=== PATIENT | male | born 1950 | race Caucasian/White ===

== ENCOUNTER 2017-09-05 16:49 | Inpatient (IN) | payer OTHER ==
[~2017-09-05] VITALS: Ht 185.4 cm; Wt 116.2 kg
[~2017-09-05 16:49] MED LIST: ALBIPROI; ALBU90OI INH; ALLO100; ALLO100 PO; ALUMINUM HYDROXIDE; AMPHOJEL PO; ASPI325; ASPI325EC; Aspir 8181 MG PO; BUME1; BUME1 PO; BUME2; BUME2 PO; CARV25 PO; CARV6.25; CARV6.25 PO; CEPH500 PO; CIPR500 PO; DIGO.125; DIGO.25; DILT180ER; DOC250; DOC250 PO; DOCSEN PO; ESCI10; ESCI10 PO; FLUSAL2505; FOSI10; FURO40; FURO40 PO; GABA100 PO; GEMF600 PO; GLIP10; GLIP10 PO; GLIP5; GLIP5ER; HYDACE10; HYDACE10 PO; HYDACE10B PO; HYDACE5; HYDCHL25; INSULANPEN SC; LEVEMIR FL100 UNIT/1 SC; LEVO750 PO; LISI5 PO; LORTAB 10-3251 EACH PO; METF500; METF500 PO; METO100ER; METO2.5; METO2.5 PO; METO50ER PO; MIDO5 PO; MIRALAX17 GM PO; MORP30ER PO; MULVITB; MULVITB PO; Metformin HCl1000 MG PO; NEPHRO-VITE; NITR.4SL; Naprosyn500 MG PO; Norco 10-325 T1 EACH PO; Novofine 321 EACH; Novolog Fl100 UNIT/1 INJ; OXYACE5T PO; OXYC20ER; PIOG15; PIOG45 PO; PIRO10; POLY17UD; POTA10T; POTA10T PO; POTA20PAC; POTCHL20ER; POTCHL20ER PO; PRAV20 PO; Percocet 5-3251 EACH PO; RANI150; RANI150 PO; RXSULTRIDS; Rena-Vite Tabl0.8 MG PO; SENN187; SENN187 PO; SILSUL1TC TOP; SPIR25 PO; SULTRIDS PO; TAMS.4ER PO; VERA80; [UNRECOGNIZED DRUG - REMARK] PO
[2017-09-05] MEDS ORDERED: Midodrine HCl10 MG PO (17:21)
[2017-09-05 17:24] LABS: BASOPHILS PERCENT AUTO 1 % (0-2); EOSINOPHILS ABSOLUTE AUTO 0.19 K/mm3 (0.00-0.68); EOSINOPHILS PERCENT AUTO 2 % (0-6); Hematocrit 41.9 % (37.0-53.0); Hemoglobin 14.1 g/dL (13.5-17.5); IMMATURE GRAN ABSOLUTE AUTO 0.05 K/mm3 (0.00-0.10); IMMATURE GRAN PERCENT AUTO 0 % (0-1); LYMPHOCYTES ABSOLUTE AUTO 2.53 K/mm3 (0.84-5.20); LYMPHOCYTES PERCENT AUTO 21 % (21-46); MONOCYTES ABSOLUTE AUTO 0.64 K/mm3 (0.16-1.47); MONOCYTES PERCENT AUTO 5 % (4-13); Mean Corpuscular HGB Conc 33.7 g/dL (31.5-36.5); Mean Corpuscular Volume 95 fL (80-100); NEUTROPHILS ABSOLUTE AUTO 8.63 K/mm3 (1.96-9.15); NEUTROPHILS PERCENT AUTO 71 % (41-73); Platelet Count 315 K/mm3 (150-400); RDW Coefficient Variation 13.9 % (11.7-14.2); RDW Standard Deviation 48.4 fL (35.1-46.3); White Blood Cell Count 12.14 K/mm3 (4.00-11.30)
[2017-09-05 17:37] LABS: Prothrombin Time Results 10.4 Sec (9.7-11.5)
[2017-09-05 17:40] LABS: Albumin, Blood 3.7 g/dL (3.4-5.0); Albumin/Globulin Ratio 0.7 (0.8-1.8); Bun/Creatinine Ratio 21.7 (12.0-20.0); Calcium, Blood 9.6 mg/dL (8.5-10.1); Creatinine, Blood 1.52 mg/dL (0.60-1.20); Globulin, Blood 5.2 g/dL (2.2-4.0); Potassium, Blood 4.3 mmol/L (3.5-5.5); Total Protein, Blood 8.9 g/dL (6.4-8.2)
[2017-09-06 02:34] LABS: Source, Urine Clean Catch
[2017-09-06 02:43] LABS: Bilirubin, Urine Neg (Neg); Blood, Urine Neg (Neg); Glucose Qualitative, Urine Neg (Neg); Ketones, Urine Neg (Neg); Leukocyte Esterase, Urine Neg (Neg); Nitrite, Urine Neg (Neg); Protein, Urine Neg (Neg); Specific Gravity, Urine 1.015 (1.003-1.022); Urobilinogen, Urine NORM (Normal)
[2017-09-06 02:46] LABS: Appearance, Urine Clear (Clear); Color, Urine Yellow (P-Yellow)
[2017-09-06 04:15] LABS: BASOPHILS ABSOLUTE AUTO 0.08 K/mm3 (0.00-0.23); BASOPHILS PERCENT AUTO 1 % (0-2); EOSINOPHILS ABSOLUTE AUTO 0.23 K/mm3 (0.00-0.68); EOSINOPHILS PERCENT AUTO 2 % (0-6); Hematocrit 39.7 % (37.0-53.0); Hemoglobin 13.2 g/dL (13.5-17.5); IMMATURE GRAN ABSOLUTE AUTO 0.07 K/mm3 (0.00-0.10); IMMATURE GRAN PERCENT AUTO 1 % (0-1); LYMPHOCYTES ABSOLUTE AUTO 2.81 K/mm3 (0.84-5.20); LYMPHOCYTES PERCENT AUTO 23 % (21-46); MONOCYTES ABSOLUTE AUTO 0.82 K/mm3 (0.16-1.47); MONOCYTES PERCENT AUTO 7 % (4-13); Mean Corpuscular HGB Conc 33.2 g/dL (31.5-36.5); Mean Corpuscular Volume 96 fL (80-100); Mean Platelet Volume 10.1 fL (9.1-12.4); NEUTROPHILS ABSOLUTE AUTO 8.36 K/mm3 (1.96-9.15); NEUTROPHILS PERCENT AUTO 68 % (41-73); Platelet Count 272 K/mm3 (150-400); RDW Coefficient Variation 14.2 % (11.7-14.2); RDW Standard Deviation 49.3 fL (35.1-46.3); Red Blood Cell Count 4.12 M/mm3 (4.30-5.90); White Blood Cell Count 12.37 K/mm3 (4.00-11.30)
[2017-09-06 04:43] LABS: Albumin, Blood 3.3 g/dL (3.4-5.0); Albumin/Globulin Ratio 0.7 (0.8-1.8); Bilirubin, Total 0.8 mg/dL (0.1-1.0); Bun/Creatinine Ratio 24.5 (12.0-20.0); Calcium, Blood 9.3 mg/dL (8.5-10.1); Creatinine, Blood 1.39 mg/dL (0.60-1.20); Globulin, Blood 4.8 g/dL (2.2-4.0); Potassium, Blood 4.3 mmol/L (3.5-5.5); Total Protein, Blood 8.1 g/dL (6.4-8.2)
[2017-09-06] MEDS ORDERED: ELIQUIS5 MG PO (05:22)
[2017-09-07 04:11] LABS: BASOPHILS ABSOLUTE AUTO 0.08 K/mm3 (0.00-0.23); BASOPHILS PERCENT AUTO 1 % (0-2); EOSINOPHILS ABSOLUTE AUTO 0.22 K/mm3 (0.00-0.68); EOSINOPHILS PERCENT AUTO 2 % (0-6); Hematocrit 36.1 % (37.0-53.0); Hemoglobin 12.1 g/dL (13.5-17.5); IMMATURE GRAN ABSOLUTE AUTO 0.06 K/mm3 (0.00-0.10); IMMATURE GRAN PERCENT AUTO 1 % (0-1); LYMPHOCYTES ABSOLUTE AUTO 3.11 K/mm3 (0.84-5.20); LYMPHOCYTES PERCENT AUTO 32 % (21-46); MONOCYTES ABSOLUTE AUTO 0.71 K/mm3 (0.16-1.47); MONOCYTES PERCENT AUTO 7 % (4-13); Mean Corpuscular HGB Conc 33.5 g/dL (31.5-36.5); Mean Corpuscular Volume 96 fL (80-100); Mean Platelet Volume 10.2 fL (9.1-12.4); NEUTROPHILS ABSOLUTE AUTO 5.42 K/mm3 (1.96-9.15); NEUTROPHILS PERCENT AUTO 57 % (41-73); Platelet Count 251 K/mm3 (150-400); RDW Standard Deviation 48.4 fL (35.1-46.3); Red Blood Cell Count 3.78 M/mm3 (4.30-5.90)
[2017-09-07 04:26] LABS: Albumin, Blood 2.9 g/dL (3.4-5.0); Anion Gap 7 mmol/L (6-16); Blood Urea Nitrogen 49 mg/dL (8-24); Bun/Creatinine Ratio 31.8 (12.0-20.0); CO2, Blood 27 mmol/L (21-32); Calcium, Blood 8.5 mg/dL (8.5-10.1); Chloride, Blood 102 mmol/L (98-108); Creatinine, Blood 1.54 mg/dL (0.60-1.20); Glomerular Filtration Rate 48 (60-); Glucose, Blood 241 mg/dL (70-99); Phosphorus, Blood 4.5 mg/dL (2.5-4.9); Potassium, Blood 4.1 mmol/L (3.5-5.5); Sodium, Blood 136 mmol/L (136-145)
[2017-09-09 04:55] LABS: BASOPHILS ABSOLUTE AUTO 0.09 K/mm3 (0.00-0.23); BASOPHILS PERCENT AUTO 1 % (0-2); EOSINOPHILS ABSOLUTE AUTO 0.32 K/mm3 (0.00-0.68); EOSINOPHILS PERCENT AUTO 4 % (0-6); Hematocrit 39.2 % (37.0-53.0); IMMATURE GRAN ABSOLUTE AUTO 0.05 K/mm3 (0.00-0.10); IMMATURE GRAN PERCENT AUTO 1 % (0-1); LYMPHOCYTES ABSOLUTE AUTO 3.03 K/mm3 (0.84-5.20); LYMPHOCYTES PERCENT AUTO 36 % (21-46); MONOCYTES ABSOLUTE AUTO 0.77 K/mm3 (0.16-1.47); MONOCYTES PERCENT AUTO 9 % (4-13); Mean Corpuscular HGB 31.9 pg (26.0-34.0); Mean Corpuscular HGB Conc 33.2 g/dL (31.5-36.5); Mean Corpuscular Volume 96 fL (80-100); Mean Platelet Volume 10.3 fL (9.1-12.4); NEUTROPHILS ABSOLUTE AUTO 4.14 K/mm3 (1.96-9.15); NEUTROPHILS PERCENT AUTO 49 % (41-73); Platelet Count 257 K/mm3 (150-400); RDW Coefficient Variation 13.9 % (11.7-14.2); RDW Standard Deviation 48.4 fL (35.1-46.3); Red Blood Cell Count 4.08 M/mm3 (4.30-5.90)
[2017-09-09 05:20] LABS: Albumin, Blood 3.3 g/dL (3.4-5.0); Anion Gap 9 mmol/L (6-16); Blood Urea Nitrogen 57 mg/dL (8-24); Bun/Creatinine Ratio 36.5 (12.0-20.0); CO2, Blood 28 mmol/L (21-32); Calcium, Blood 9.4 mg/dL (8.5-10.1); Chloride, Blood 97 mmol/L (98-108); Creatinine, Blood 1.56 mg/dL (0.60-1.20); Glomerular Filtration Rate 47 (60-); Glucose, Blood 231 mg/dL (70-99); Phosphorus, Blood 4.8 mg/dL (2.5-4.9); Potassium, Blood 3.9 mmol/L (3.5-5.5); Sodium, Blood 134 mmol/L (136-145)
[2017-09-10 05:56] LABS: BASOPHILS PERCENT AUTO 1 % (0-2); EOSINOPHILS PERCENT AUTO 4 % (0-6); Hematocrit 38.7 % (37.0-53.0); Hemoglobin 12.9 g/dL (13.5-17.5); IMMATURE GRAN ABSOLUTE AUTO 0.03 K/mm3 (0.00-0.10); IMMATURE GRAN PERCENT AUTO 0 % (0-1); LYMPHOCYTES ABSOLUTE AUTO 3.31 K/mm3 (0.84-5.20); LYMPHOCYTES PERCENT AUTO 39 % (21-46); MONOCYTES ABSOLUTE AUTO 0.71 K/mm3 (0.16-1.47); MONOCYTES PERCENT AUTO 8 % (4-13); Mean Corpuscular HGB 31.9 pg (26.0-34.0); Mean Corpuscular HGB Conc 33.3 g/dL (31.5-36.5); Mean Corpuscular Volume 96 fL (80-100); Mean Platelet Volume 10.1 fL (9.1-12.4); NEUTROPHILS ABSOLUTE AUTO 4.15 K/mm3 (1.96-9.15); NEUTROPHILS PERCENT AUTO 48 % (41-73); Platelet Count 262 K/mm3 (150-400); RDW Coefficient Variation 13.8 % (11.7-14.2); RDW Standard Deviation 48.2 fL (35.1-46.3); Red Blood Cell Count 4.04 M/mm3 (4.30-5.90)
[2017-09-10 06:16] LABS: Bun/Creatinine Ratio 33.3 (12.0-20.0); Calcium, Blood 9.1 mg/dL (8.5-10.1); Creatinine, Blood 2.25 mg/dL (0.60-1.20); Potassium, Blood 4.5 mmol/L (3.5-5.5)
[2017-09-10] MEDS ORDERED: AMOX875 PO (14:56)
[2017-09-10] MEDS ORDERED: Lyrica25 MG PO (14:57)
[2017-09-10] MEDS ORDERED: Bactrim Ds Tab1 EACH PO (14:58)
== END 2017-09-10 18:20 | disposition home health service (06) | DRG 617 ==
LOC: ER 16:49 → SURS 18:27
PROVIDERS: Family Medicine; Internal Medicine; Physician Assistant; Podiatrist Foot & Ankle Surgery
PROC: 0Y6R0Z3 Detachment at Right 2nd Toe, Low, Open Approach (ICD-10-PCS; principal; 2017-09-06 08:50)
DX: E11.69 Type 2 diabetes mellitus with other specified complication (principal); L02.611 Cutaneous abscess of right foot; M86.171 Other acute osteomyelitis, right ankle and foot; I13.0 Hypertensive heart and chronic kidney disease with heart failure and stage 1 through stage 4 chronic kidney disease, or unspecified chronic kidney disease; I50.22 Chronic systolic (congestive) heart failure; L03.031 Cellulitis of right toe; B95.2 Enterococcus as the cause of diseases classified elsewhere; B95.62 Methicillin resistant Staphylococcus aureus infection as the cause of diseases classified elsewhere; E11.621 Type 2 diabetes mellitus with foot ulcer; L97.519 Non-pressure chronic ulcer of other part of right foot with unspecified severity; J44.9 Chronic obstructive pulmonary disease, unspecified; M10.9 Gout, unspecified; E11.40 Type 2 diabetes mellitus with diabetic neuropathy, unspecified; E11.22 Type 2 diabetes mellitus with diabetic chronic kidney disease; N18.3 Chronic kidney disease, stage 3 (moderate); E66.9 Obesity, unspecified; I48.0 Paroxysmal atrial fibrillation; Z68.33 Body mass index [BMI] 33.0-33.9, adult; Z79.02 Long term (current) use of antithrombotics/antiplatelets; Z79.82 Long term (current) use of aspirin; Z79.4 Long term (current) use of insulin; Z79.891 Long term (current) use of opiate analgesic; Z79.899 Other long term (current) drug therapy
CPT/HCPCS: 36415; 73660; 80048; 80053; 80069; 81003; 82947; 83036; 83605; 85025; 85610; 87040; 87071; 87075; 87077; 87081; 87147; 87186; 87205; 88305; 88311; 93005; 93010; 97162; 97165; 97530; 99285; G8978; G8979; G8980; G8987; G8988; G8989; J0295; J1644; J1815; J2250; J3010; J7030

== ENCOUNTER → 2017-10-07 | Outpatient (CLI) | payer OTHER ==
[~2017-10-07] MED LIST changes: +AMOX875 PO; +Bactrim Ds Tab1 EACH PO; +ELIQUIS5 MG PO; +Lyrica25 MG PO; +Midodrine HCl10 MG PO
== END | disposition home or self-care (01) ==
LOC: LAB SHORT 15:10 → LAB 15:10
DX: E11.49 Type 2 diabetes mellitus with other diabetic neurological complication (principal); E11.621 Type 2 diabetes mellitus with foot ulcer; L97.509 Non-pressure chronic ulcer of other part of unspecified foot with unspecified severity
CPT/HCPCS: 87070; 87075; 87205

== ENCOUNTER 2017-12-31 15:00 | Emergency (ER) | payer OTHER ==
[~2017-12-31] VITALS: Ht 185.4 cm; Wt 102.1 kg
[2017-12-31 15:47] LABS: BASOPHILS ABSOLUTE AUTO 0.06 K/mm3 (0.00-0.23); BASOPHILS PERCENT AUTO 0 % (0-2); EOSINOPHILS ABSOLUTE AUTO 0.16 K/mm3 (0.00-0.68); EOSINOPHILS PERCENT AUTO 1 % (0-6); Hematocrit 42.1 % (37.0-53.0); Hemoglobin 14.4 g/dL (13.5-17.5); IMMATURE GRAN ABSOLUTE AUTO 0.05 K/mm3 (0.00-0.10); IMMATURE GRAN PERCENT AUTO 0 % (0-1); LYMPHOCYTES ABSOLUTE AUTO 2.11 K/mm3 (0.84-5.20); LYMPHOCYTES PERCENT AUTO 15 % (21-46); MONOCYTES ABSOLUTE AUTO 0.74 K/mm3 (0.16-1.47); MONOCYTES PERCENT AUTO 5 % (4-13); Mean Corpuscular HGB 32.4 pg (26.0-34.0); Mean Corpuscular HGB Conc 34.2 g/dL (31.5-36.5); Mean Corpuscular Volume 95 fL (80-100); Mean Platelet Volume 10.7 fL (9.1-12.4); NEUTROPHILS ABSOLUTE AUTO 10.56 K/mm3 (1.96-9.15); NEUTROPHILS PERCENT AUTO 77 % (41-73); Platelet Count 220 K/mm3 (150-400); RDW Standard Deviation 45.1 fL (35.1-46.3); Red Blood Cell Count 4.45 M/mm3 (4.30-5.90); White Blood Cell Count 13.68 K/mm3 (4.00-11.30)
[2017-12-31 16:05] LABS: Alanine Aminotransfer (ALT/SGP 21 U/L (12-78); Albumin, Blood 3.6 g/dL (3.4-5.0); Albumin/Globulin Ratio 0.8 (0.8-1.8); Alk Phos 127 U/L (50-136); Anion Gap 9 mmol/L (6-16); Aspartate Aminotrans (AST/SGOT 12 U/L (12-37); Bilirubin, Total 0.9 mg/dL (0.1-1.0); Blood Urea Nitrogen 48 mg/dL (8-24); Bun/Creatinine Ratio 34.5 (12.0-20.0); CO2, Blood 24 mmol/L (21-32); Calcium, Blood 8.7 mg/dL (8.5-10.1); Chloride, Blood 98 mmol/L (98-108); Creatinine, Blood 1.39 mg/dL (0.60-1.20); Globulin, Blood 4.4 g/dL (2.2-4.0); Glomerular Filtration Rate 54 (60-); Glucose, Blood 372 mg/dL (70-99); Potassium, Blood 5.2 mmol/L (3.5-5.5); Sodium, Blood 131 mmol/L (136-145)
[2017-12-31 16:24] LABS: Troponin I <0.015 ng/mL (0.000-0.040)
[2017-12-31] MEDS ORDERED: Rena-Vite Tabl0.8 MG PO (16:41)
[2017-12-31] MEDS ORDERED: Zantac150 MG PO (16:41)
[2017-12-31] MEDS ORDERED: Coreg25 MG PO (16:41)
[2017-12-31] MEDS ORDERED: Norco 10-325 T1 EACH PO (16:41)
[2017-12-31] MEDS ORDERED: PRAV20 PO (16:41)
[2017-12-31] MEDS ORDERED: BUME2 PO (16:41)
[2017-12-31] MEDS ORDERED: MIRALAX119 GM PO (16:41)
[2017-12-31] MEDS ORDERED: Novolog Fl100 UNIT/1 SC (16:41)
[2017-12-31] MEDS ORDERED: INSDET100 SC (16:41)
[2017-12-31] MEDS ORDERED: ALLO100 PO (16:41)
[2017-12-31] MEDS ORDERED: TAMS.4ER PO (16:42)
[2017-12-31] MEDS ORDERED: PREG25 PO (16:42)
[2017-12-31] MEDS ORDERED: Midodrine HCl10 MG PO (16:42)
[2017-12-31] MEDS ORDERED: SPIR25 PO (16:42)
== END 2017-12-31 17:25 | disposition home or self-care (01) ==
LOC: ER 15:00
PROVIDERS: Emergency Medicine
DX: E11.65 Type 2 diabetes mellitus with hyperglycemia (principal); I12.9 Hypertensive chronic kidney disease with stage 1 through stage 4 chronic kidney disease, or unspecified chronic kidney disease; E11.40 Type 2 diabetes mellitus with diabetic neuropathy, unspecified; E11.22 Type 2 diabetes mellitus with diabetic chronic kidney disease; N18.3 Chronic kidney disease, stage 3 (moderate); J44.9 Chronic obstructive pulmonary disease, unspecified; I48.0 Paroxysmal atrial fibrillation; Z79.899 Other long term (current) drug therapy; Z79.4 Long term (current) use of insulin
CPT/HCPCS: 36415; 71046; 80053; 82947; 83880; 84484; 85025; 93005; 93010; 99284-25; J1815

== ENCOUNTER 2020-07-17 13:05 | Inpatient (IN) | payer OTHER, MEDICARE ==
[~2020-07-17] VITALS: Ht 185.4 cm; Wt 122.2 kg
[~2020-07-17 13:05] MED LIST changes: +Coreg25 MG PO; -ELIQUIS5 MG PO; +INSDET100 SC; -LEVEMIR FL100 UNIT/1 SC; -Lyrica25 MG PO; +MIRALAX119 GM PO; -Novolog Fl100 UNIT/1 INJ; +Novolog Fl100 UNIT/1 SC; +PREG25 PO; +Zantac150 MG PO
[2020-07-17 13:58] LABS: BASOPHILS ABSOLUTE AUTO 0.11 K/mm3 (0.00-0.23); BASOPHILS PERCENT AUTO 1 % (0-2); EOSINOPHILS ABSOLUTE AUTO 0.21 K/mm3 (0.00-0.68); EOSINOPHILS PERCENT AUTO 1 % (0-6); Hematocrit 42.7 % (37.0-53.0); Hemoglobin 14.5 g/dL (13.5-17.5); IMMATURE GRAN ABSOLUTE AUTO 0.36 K/mm3 (0.00-0.10); IMMATURE GRAN PERCENT AUTO 2 % (0-1); LYMPHOCYTES ABSOLUTE AUTO 1.72 K/mm3 (0.84-5.20); LYMPHOCYTES PERCENT AUTO 9 % (21-46); MONOCYTES ABSOLUTE AUTO 0.89 K/mm3 (0.16-1.47); MONOCYTES PERCENT AUTO 5 % (4-13); Mean Corpuscular HGB 29.5 pg (26.0-34.0); Mean Corpuscular Volume 87 fL (80-100); NEUTROPHILS ABSOLUTE AUTO 16.19 K/mm3 (1.96-9.15); NEUTROPHILS PERCENT AUTO 83 % (41-73); Platelet Count 413 K/mm3 (150-400); RDW Coefficient Variation 14.9 % (11.7-14.2); RDW Standard Deviation 47.7 fL (35.1-46.3); Red Blood Cell Count 4.91 M/mm3 (4.30-5.90); White Blood Cell Count 19.48 K/mm3 (4.00-11.30)
[2020-07-17 14:10] LABS: Albumin, Blood 2.9 g/dL (3.4-5.0); Albumin/Globulin Ratio 0.5 (0.8-1.8); Bilirubin, Total 0.9 mg/dL (0.1-1.0); Bun/Creatinine Ratio 42.9 (12.0-20.0); Calcium, Blood 9.4 mg/dL (8.5-10.1); Creatinine, Blood 2.59 mg/dL (0.60-1.20); Potassium, Blood 4.7 mmol/L (3.5-5.5); Total Protein, Blood 8.9 g/dL (6.4-8.2)
[2020-07-17 14:14] LABS: International Normalized Ratio 1.15; Prothrombin Time Results 12.2 Sec (9.7-11.5)
[2020-07-17 14:20] LABS: Magnesium, Blood 2.2 mg/dL (1.6-2.4); Phosphorus, Blood 5.4 mg/dL (2.5-4.9)
[2020-07-17] MEDS ORDERED: BUME2 PO (16:29)
[2020-07-17] MEDS ORDERED: SPIR25 PO (16:30)
[2020-07-17] MEDS ORDERED: METO5 PO (16:30)
[2020-07-17] MEDS ORDERED: TRULICITY1.5 MG/0.1 SC (16:31)
[2020-07-17] MEDS ORDERED: BASAGLAR K100 UNIT/6 SC (16:32)
[2020-07-17] MEDS ORDERED: PREG50 PO (16:32)
[2020-07-17] MEDS ORDERED: ELIQUIS5 MG PO (16:33)
[2020-07-17] MEDS ORDERED: METOPROLOL SUCC25 MG PO (16:33)
[2020-07-17] MEDS ORDERED: ALLO100 PO (16:34)
[2020-07-17] MEDS ORDERED: POTCHL20ER PO (16:35)
[2020-07-17] MEDS ORDERED: NOVOLOG100 UNIT/2 SC (16:36)
[2020-07-17] MEDS ORDERED: Rena-Vite Tabl0.8 MG PO (16:50)
[2020-07-17] MEDS ORDERED: BIOTIN5 MG PO (16:51)
[2020-07-17 17:12] LABS: Source, Urine Clean Catch
[2020-07-17 17:20] LABS: Appearance, Urine Clear (Clear); Bilirubin, Urine Neg (Neg); Blood, Urine Neg (Neg); Color, Urine Yellow (P-Yellow); Glucose Qualitative, Urine Neg (Neg); Ketones, Urine Neg (Neg); Leukocyte Esterase, Urine Neg (Neg); Nitrite, Urine Neg (Neg); Protein, Urine Neg (Neg); Urobilinogen, Urine NORM (Normal); pH, Urine 6.5 (5.0-8.0)
[2020-07-17 18:40] LABS: Glucose, Body Fluid 161 mg/dL; Protein, Body Fluid 2.4 g/dL
[2020-07-17 18:57] LABS: Body Fluid Crystals NEG (NEGATIVE)
[2020-07-17 19:17] LABS: BODY FLUID RBC 1.288 M/mm3 (0-0); RBC Count, Synovial Fluid 1288000 /mm3 (0-0)
[2020-07-17 19:18] LABS: WBC Count, Synovial Fluid >200000 /mm3 (0-180)
[2020-07-17 19:59] LABS: Crystals, Synovial Fluid Not Seen (Not Seen); Lymphs, Synovial Fluid 16 % (0-15); Monocytes/Macrophages, Synovia 3 % (0-65); Neutrophils, Synovial Fluid 81 % (0-24)
[2020-07-17 20:00] LABS: Appearance, Synovial Fluid Turbid (Clear); Color, Synovial Fluid Yellow (None-P Yel)
--- NOTE | 2020-07-18 03:35 | NUR ---
NON CDL DRIVER SUMMARY PT ADMITTED FROM ED AT 2109 THIS SHIFT, RECEIVED REPORT FROM RISA PETERS. PT A&OX4, ABLE TO MAKE NEEDS KNOWN, PLEASANT AND COOPERATIVE TO CARE. NO C/O PAIN OR ANY DISCOMFORT, DENIES CP, SOB, OR N&V. PT TO BE NPO AT BREAKFAST ORDERED. [place] 1 [place] [facility] [place] HAD A BM THIS SHIFT. PT USES URINAL INDEPENDENTLY, DENIES DYSURIA. PT CALM AND RESTED IN BED T/O SHIFT. BED AT LOWEST POSITION. CALL LIGHT WITHIN REACH.
[2020-07-18 05:14] LABS: BASOPHILS ABSOLUTE AUTO 0.12 K/mm3 (0.00-0.23); BASOPHILS PERCENT AUTO 1 % (0-2); EOSINOPHILS ABSOLUTE AUTO 0.36 K/mm3 (0.00-0.68); EOSINOPHILS PERCENT AUTO 2 % (0-6); Hematocrit 39.2 % (37.0-53.0); IMMATURE GRAN PERCENT AUTO 2 % (0-1); LYMPHOCYTES ABSOLUTE AUTO 2.12 K/mm3 (0.84-5.20); LYMPHOCYTES PERCENT AUTO 11 % (21-46); MONOCYTES ABSOLUTE AUTO 1.22 K/mm3 (0.16-1.47); MONOCYTES PERCENT AUTO 6 % (4-13); Mean Corpuscular HGB 29.1 pg (26.0-34.0); Mean Corpuscular HGB Conc 33.2 g/dL (31.5-36.5); Mean Corpuscular Volume 88 fL (80-100); Mean Platelet Volume 10.7 fL (9.1-12.4); NEUTROPHILS ABSOLUTE AUTO 14.84 K/mm3 (1.96-9.15); NEUTROPHILS PERCENT AUTO 78 % (41-73); Platelet Count 353 K/mm3 (150-400); RDW Coefficient Variation 14.9 % (11.7-14.2); RDW Standard Deviation 47.6 fL (35.1-46.3); Red Blood Cell Count 4.46 M/mm3 (4.30-5.90); White Blood Cell Count 19.06 K/mm3 (4.00-11.30)
[2020-07-18 05:31] LABS: Anion Gap 14 mmol/L (6-16); Blood Urea Nitrogen 101 mg/dL (8-24); Bun/Creatinine Ratio 44.9 (12.0-20.0); CO2, Blood 24 mmol/L (21-32); Calcium, Blood 8.7 mg/dL (8.5-10.1); Chloride, Blood 91 mmol/L (98-108); Creatinine, Blood 2.25 mg/dL (0.60-1.20); Glomerular Filtration Rate 31 (60-); Glucose, Blood 215 mg/dL (70-99); Sodium, Blood 129 mmol/L (136-145); Vancomycin, Random 19.7 ug/mL
[2020-07-18 12:02] LABS: Influenza A, PCR NEGATIVE (NEGATIVE); Influenza B, PCR NEGATIVE (NEGATIVE); Resp Syncytial Virus, PCR NEGATIVE (NEGATIVE); SARS-Cov-2 (COVID-19) PCR, MMC NEGATIVE (NEGATIVE)
--- NOTE | 2020-07-18 12:54 | NUR ---
PATIENT WAS BROUGHT TO D/S FOR HIS PROCEDURE. Surgical site prepped with 2% Chlorhexidine cloth wipe. History, Chart, Medications and Allergies reviewed before start of procedure.Lungs clear T/O to Auscultation. Patient confirms NPO status and agrees with scheduled surgery. Pre-Op teaching done. Pt verbalizes understanding.
--- NOTE | 2020-07-18 13:36 | NUR ---
07/18/20 1336 Lonnie Escalante PATIENT ON SCHEDULED ANTIBIOTICS
--- NOTE | 2020-07-18 14:04 | NUR ---
AMM ASSESSMENT PT IS A/O X4, PLEASANT AFFECT. STATE NO PAIN @ REST. STATE RECENT FALL @ HOME, REASON FOR L EYE BRUISING. R KNEE IS RED/SWOLLEN WARM TO TOUCH. 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 PT NPO X MEDS/ICE CHIPS. SURVEY SUPERINTENDENT UP TO OBTAIN RAPID COVID19 SWAB. PT OUT TO OR APPROX 1100. INVOICE CODER CALL APPROX 1400, REPORT PT WILL TRANSFER TP RM 208. WILL CALL TO GIVE REPORT.
--- NOTE | 2020-07-18 14:30 | NUR ---
THIS RN RECIEVED REPORT FROM OTHER RN AND IS ASSUMING CARE OF PT POST-OP.
[2020-07-18 14:53] LABS: BODY FLUID RBC 0.478 M/mm3 (0-0); RBC Count, Synovial Fluid 478000 /mm3 (0-0); WBC Count, Synovial Fluid >200000 /mm3 (0-180)
--- NOTE | 2020-07-18 15:00 | NUR ---
PT RECENTLY HERE FROM HAVING PROCEDURE. PT A/O. PT REPORTS MINIMAL PAIN IN KNEE. PT DENIES CP/SOB, N/V. REPORTS N/T SAME HE HAS BEEN WITH HX OF NEUROPATHY. PT HAS WOUND VAC TO R KNEE. PT WITH SCATTERED BRUISING WELL SCATTERED ABRASIONS, SOME WITH DRESSINGS AND SOME WITHOUT. PT GIVEN CALL LIGHT, REPORTS AWARE OF HOW TO USE. GIVEN URINAL. PT PPX4. WIGGLES TOES. VSS. DENIES DIZZINESS OR LIGHTHEADEDNESS. PAS TO LLE IN PLACE. TELE PLACED AND CONFIRMED AND DISCUSSED WITH TELE THAT PT IS NOW IN ROOM 208.
[2020-07-18 16:09] LABS: Lymphs, Synovial Fluid 1 % (0-15); Monocytes/Macrophages, Synovia 9 % (0-65); Neutrophils, Synovial Fluid 90 % (0-24)
[2020-07-18 16:10] LABS: Appearance, Synovial Fluid Turbid (Clear); Color, Synovial Fluid Opaque (None-P Yel)
--- NOTE | 2020-07-18 16:59 | NUR ---
PT EATING AND DRINKING WITHOUT DIFFICULTY. PT VOIDED SINCE PROCEDURE. PAS IN PLACE, CALL LIGHT IN REACH.
--- NOTE | 2020-07-18 18:20 | NUR ---
PT TEDS PLACED TO LLE. PAS IN PLACE TO LLE. PT REFUSING CARMELINA AND PAS TO RLE. WOUND VAC IN PLACE.
--- NOTE | 2020-07-18 19:10 | NUR ---
BEDSIDE REPORT GIVEN RECENTLY WITH HS RN.
--- NOTE | 2020-07-18 20:10 | NUR ---
PHYSICIAN NOTIFY TRUCK TECHNICIAN PROVIDER NOTIFIED HS CBG OF 424. OT DOSE OF LOW SS ORDERED.
--- NOTE | 2020-07-19 03:38 | NUR ---
ADVERTISING COPYWRITER SUMMARY A/O X3. C/O R. LEG PAIN X1, MEDICATED PER EMAR. WOUND VAC TO R. LEG PATENT. CURRENTLY ON 2L VIA NC WITH SATS GREATER THAN 92. NO ACUTE CHANGES AT THIS TIME. BED IN LOWEST POSITION WITH CALL LIGHT IN REACH. WILL CONTINUE TO MONITOR AND REPORT TO ONCOMING RN.
[2020-07-19 04:29] LABS: BASOPHILS ABSOLUTE AUTO 0.04 K/mm3 (0.00-0.23); BASOPHILS PERCENT AUTO 0 % (0-2); EOSINOPHILS ABSOLUTE AUTO 0.01 K/mm3 (0.00-0.68); EOSINOPHILS PERCENT AUTO 0 % (0-6); Hematocrit 38.3 % (37.0-53.0); Hemoglobin 12.8 g/dL (13.5-17.5); IMMATURE GRAN ABSOLUTE AUTO 0.22 K/mm3 (0.00-0.10); IMMATURE GRAN PERCENT AUTO 2 % (0-1); LYMPHOCYTES ABSOLUTE AUTO 0.87 K/mm3 (0.84-5.20); LYMPHOCYTES PERCENT AUTO 8 % (21-46); MONOCYTES ABSOLUTE AUTO 0.35 K/mm3 (0.16-1.47); MONOCYTES PERCENT AUTO 3 % (4-13); Mean Corpuscular HGB 29.8 pg (26.0-34.0); Mean Corpuscular HGB Conc 33.4 g/dL (31.5-36.5); Mean Corpuscular Volume 89 fL (80-100); Mean Platelet Volume 10.6 fL (9.1-12.4); NEUTROPHILS ABSOLUTE AUTO 9.68 K/mm3 (1.96-9.15); NEUTROPHILS PERCENT AUTO 87 % (41-73); Platelet Count 347 K/mm3 (150-400); White Blood Cell Count 11.17 K/mm3 (4.00-11.30)
[2020-07-19 04:43] LABS: Bun/Creatinine Ratio 48.8 (12.0-20.0); Calcium, Blood 8.5 mg/dL (8.5-10.1); Creatinine, Blood 2.01 mg/dL (0.60-1.20); Magnesium, Blood 2.5 mg/dL (1.6-2.4); Potassium, Blood 3.6 mmol/L (3.5-5.5)
--- NOTE | 2020-07-19 07:30 | NUR ---
DR CASAREZ BEEN HERE TO SEE PT.
--- NOTE | 2020-07-19 09:43 | NUR ---
DR DUKES HERE TO SEE PT. DISCUSSED PT'S STATUS, INCLUDING DR CASAREZ'S PLAN FOR NPO AFTER MIDNIGHT.
--- NOTE | 2020-07-19 17:39 | NUR ---
SHIFT SUMMARY PT EATING AND DRINKING, VOIDING. WORKED WITH THERAPY TODAY. PT BEEN ASSISTED WITH ADL'S PRN. PT MED PRN FOR PAIN AND ORDERED. PT MOVING SELF IN BED WELL.
--- NOTE | 2020-07-20 07:15 | NUR ---
SHIFT SUMMARY POD 2 R KNEE I&D, A/O X4, VSS, VOIDING WELL, LARGE BM THIS SHIFT, TOLERATING PO, SCHEDULED FOR 2ND I&D LATER TODAY, DENIES PAIN T/O SHIFT, AMBULATES W/ 1 PERSON ASSIST STAND/PIVOT TO BSC. CALL LIGHT IN REACH, REPORT GIVEN TO DAY RN.
[2020-07-20 09:51] LABS: Vancomycin, Trough 24.8 ug/mL (5.0-10.0)
--- NOTE | 2020-07-20 15:25 | NUR ---
PT TO OR AT THIS TIME
--- NOTE | 2020-07-20 16:57 | NUR ---
PT SURGERY BEING PLACED ON HOLD FOR NOW.
--- NOTE | 2020-07-20 18:10 | NUR ---
SUMMARY: PT TO BE POD0 TONIGHT FOR 2ND I&D OF R KNEE. PT IN OR CURRENTLY. VSS, A/O TODAY. MEDICATED FOR PAIN PRN. PT ABLE TO STAND/PIVOT TO CHAIR. MEPILEX DRESSINGS CHANGED AT RLQ AND R ELBOW. NO ACUTE SAFETY CONCERNS, WILL REPORT TO NOC RN
--- NOTE | 2020-07-20 18:52 | NUR ---
07/20/20 185 Devonte Degroot PT ON SCHEDULED ANTIBIOTICS AND RECIEVED PRIOR TO ARRIVAL TO OR. CONFIRMED WITH DR CASAREZ.
--- NOTE | 2020-07-21 05:06 | NUR ---
SHIFT SUMMARY POD1 FOR 2ND I&D TO R KNEE, A/O X4, VSS, PT TRANSFERS TO C W/ 1 PERSON ASSIST, A LITTLE TOO WEAK TO STAND UP UNASSISTED, TOLERATING PO, VOIDING WELL, PASSING FLATUS, NO BM THIS SHIFT, PAIN WELL CONTROLLED PER EMAR. CALL LIGHT IN REACH, WILL CONTINUE TO MONITOR AND REPORT TO ONCOMING DAY RN.
[2020-07-21 05:56] LABS: BASOPHILS ABSOLUTE AUTO 0.13 K/mm3 (0.00-0.23); BASOPHILS PERCENT AUTO 1 % (0-2); EOSINOPHILS ABSOLUTE AUTO 0.69 K/mm3 (0.00-0.68); EOSINOPHILS PERCENT AUTO 7 % (0-6); Hematocrit 37.5 % (37.0-53.0); IMMATURE GRAN PERCENT AUTO 2 % (0-1); LYMPHOCYTES ABSOLUTE AUTO 1.91 K/mm3 (0.84-5.20); LYMPHOCYTES PERCENT AUTO 19 % (21-46); MONOCYTES ABSOLUTE AUTO 0.67 K/mm3 (0.16-1.47); MONOCYTES PERCENT AUTO 7 % (4-13); Mean Corpuscular HGB 29.1 pg (26.0-34.0); Mean Corpuscular Volume 91 fL (80-100); Mean Platelet Volume 10.3 fL (9.1-12.4); NEUTROPHILS ABSOLUTE AUTO 6.64 K/mm3 (1.96-9.15); NEUTROPHILS PERCENT AUTO 65 % (41-73); Platelet Count 339 K/mm3 (150-400); RDW Coefficient Variation 15.1 % (11.7-14.2); Red Blood Cell Count 4.13 M/mm3 (4.30-5.90); White Blood Cell Count 10.24 K/mm3 (4.00-11.30)
[2020-07-21 06:24] LABS: Albumin, Blood 2.5 g/dL (3.4-5.0); Anion Gap 8 mmol/L (6-16); Blood Urea Nitrogen 63 mg/dL (8-24); Bun/Creatinine Ratio 43.2 (12.0-20.0); CO2, Blood 26 mmol/L (21-32); Calcium, Blood 8.7 mg/dL (8.5-10.1); Chloride, Blood 104 mmol/L (98-108); Creatinine, Blood 1.46 mg/dL (0.60-1.20); Glomerular Filtration Rate 50 (60-); Glucose, Blood 212 mg/dL (70-99); Magnesium, Blood 2.6 mg/dL (1.6-2.4); Phosphorus, Blood 4.2 mg/dL (2.5-4.9); Potassium, Blood 3.9 mmol/L (3.5-5.5); Sodium, Blood 138 mmol/L (136-145)
[2020-07-21 15:38] LABS: Vancomycin, Trough 19.7 ug/mL (5.0-10.0)
--- NOTE | 2020-07-21 17:38 | NUR ---
SHIFT SUMMARY PT POD #1 FOR I&D TO R KNEE. A/O X4; PLEASANT AND COOPERATIVE WITH CARE. 1 ASSIST W/FWW TO BSC. WORKED WITH P.T./O.T. TODAY. BLOOD GLUCOSE LEVELS STABLE THIS SHIFT. VS STABLE. MEDICATED FOR PAIN #2. SEE EMR. GETTING IV ANTIBIOTICS AND ON 2 LITERS O2. RESTING COMFORTABLY IN BED WITH CALL LIGHT IN REACH.
--- NOTE | 2020-07-22 06:17 | NUR ---
SHIFT SUMMARY POD2 R KNEE I&D #2, A/O X4, VSS, TOLERATING PO, VOIDING WELL, NO BM THIS SHIFT, TRANSFERS WELL FROM BED TO BSC AND BACK, A LITTLE WEAK STANDING UP BUT DOES WELL ONCE HE IS ON HIS FEET. CALL LIGHT IN REACH, WILL CONTINUE TO MONITOR AND REPORT TO ONCOMING DAY RN.
--- NOTE | 2020-07-22 07:39 | NUR ---
ASSUMED CARE: PT ALERT AND ORIENTED, DANGLING LEGS TO SIDE OF BED. NSR WITH BBB AND 1ST DEGREE ON TELE. DENIES NEEDS OR CONCERNS AT THIS TIME.
--- NOTE | 2020-07-22 17:49 | NUR ---
SHIFT SUMMARY: PT HAS BEEN MEDICATED FOR PAIN X2 THIS SHIFT. WARE DRESSER STATED THAT WOUND VAC CHANGES ARE USUALLY DONE EVERY 3 DAYS SO NEXT CHANGE IS DUE TOMORROW. 1 ASSIST TO BSC. DENIES NEEDS OR CONCERNS AT THIS TIME. AWAITING ORTHO CLEARANCE FOR DISCHARGE AND FURTHER PLANS
--- NOTE | 2020-07-23 04:52 | NUR ---
SHIFT SUMMARY PT IS A/O X4. SBA UP TO BSC WITH FWW. PAIN MANAGED WITH PO PAIN MED PER ORDERS OVERNIGHT. TOLERATING PO INTAKE W/O N/V. WOUND VAC TO R LEG WITH FOAM COMPRESSED AND WOUND VAC FUNCTIONING. TELE IN PLACE; SINUS TACH WTIH BBB PER PLYWOOD SCARFER TENDER. PT USING CALL LIGHT APPROPRIATELY. RESTING IN BED AT THIS TIME, CALL LIGHT IN REACH.
[2020-07-23 15:37] LABS: Creatinine, Blood 1.14 mg/dL (0.60-1.20)
--- NOTE | 2020-07-23 19:14 | NUR ---
SHIFT SUMMARY NO ACUTE CHANGES THIS SHIFT. PT A/O X4; PLEASANT AND COOPERATIVE WITH CARE. WOUND VAC IN PLACE. STAND BY ASSIST W/FWW TO BSC. MEDICATED FOR PAIN X2 THIS SHIFT. RESTING COMFORTABLY IN BED WITH CALL LIGHT IN REACH.
--- NOTE | 2020-07-24 04:48 | NUR ---
SHIFT SUMMARY PT IS A/O X4. SBA UP TO BSC WITH FWW. WOUND VAC IN PLACE, FOAM COMPRESSED. PAIN MANAGED WITH ULTRAM PER ORDERS. BIOX IN USE OVERNIGHT. PT USING 2L O2 NC PRN. NO ACUTE CHANGES THIS SHIFT. PT RESTING IN BED AT THIS TIME, CALL LIGHT IN REACH.
--- NOTE | 2020-07-25 04:41 | NUR ---
SHIFT SUMMARY PT IS A/O X4, SBA UP TO BSC WITH FWW. WOUND VAC IN PLACE TO R KNEE WITH FOAM COMPRESSED. PAIN MANAGED WITH ULTRAM Q4 PRN. PT TOLERATING PO INTAKE AND VOIDING. NO ACUTE CHANGES OVERNIGHT. PT RESTING IN BED AT THIS TIME. CALL LIGHT IN REACH.
[2020-07-25] MEDS ORDERED: Norco 5-325 Ta1 EACH PO (16:19)
[2020-07-25] MEDS ORDERED: HYDR1TAB94 PO (16:36)
[2020-07-25] MEDS ORDERED: VISBIOME 112.51 EACH PO (16:36)
[2020-07-25] MEDS ORDERED: Cleocin HCl150 MG PO (16:37)
--- NOTE | 2020-07-25 17:42 | NUR ---
DISCHARGE : WOUND DRESSING CHANGED AT ABOUT 1600. PT'S WOUND WAC FOR DC REPLACED WITH HOSPITALS WOUND VAC. HOSPITAL VAC TO BE RETURNED TO LEAF CONDITIONER AFTER CLEANED. PACKET PRINTED AND PT EDUCATED. GIVEN SCRIPT AND WOUND VAC SUPPLIES . LEFT UNIT AT ABOUT 1715 VIA WHEELCHAIR WITH MED BEAR
== END 2020-07-25 17:23 | disposition home health service (06) | DRG 854 ==
LOC: ER 13:05 → SURS 18:38 → MEDS 18:38 → SURS 07-18 15:00
PROVIDERS: Orthopaedic Surgery; Pharmacist; Physician Assistant; ADMIT Internal Medicine
PROC: 0MDN0ZZ Extraction of Right Knee Bursa and Ligament, Open Approach (ICD-10-PCS; principal; 2020-07-18 12:30)
PROC: 0MDN0ZZ Extraction of Right Knee Bursa and Ligament, Open Approach (ICD-10-PCS; 2020-07-20)
DX: A41.02 Sepsis due to Methicillin resistant Staphylococcus aureus (principal); N17.9 Acute kidney failure, unspecified; E87.1 Hypo-osmolality and hyponatremia; I50.32 Chronic diastolic (congestive) heart failure; I13.0 Hypertensive heart and chronic kidney disease with heart failure and stage 1 through stage 4 chronic kidney disease, or unspecified chronic kidney disease; Z20.822 Contact with and (suspected) exposure to COVID-19; R65.20 Severe sepsis without septic shock; N18.30 Chronic kidney disease, stage 3 unspecified; J44.9 Chronic obstructive pulmonary disease, unspecified; I48.0 Paroxysmal atrial fibrillation; E11.40 Type 2 diabetes mellitus with diabetic neuropathy, unspecified; Z89.421 Acquired absence of other right toe(s); Z87.891 Personal history of nicotine dependence; M71.161 Other infective bursitis, right knee; E86.1 Hypovolemia; E11.22 Type 2 diabetes mellitus with diabetic chronic kidney disease; E11.65 Type 2 diabetes mellitus with hyperglycemia; M10.9 Gout, unspecified; I44.0 Atrioventricular block, first degree; Z79.4 Long term (current) use of insulin; E66.9 Obesity, unspecified; Z68.35 Body mass index [BMI] 35.0-35.9, adult
CPT/HCPCS: 0241U; 36415; 70450; 71046; 73070; 73562-RT; 80048; 80053; 80069; 80202; 81003; 82565; 82945; 82947; 83605; 83735; 84100; 84157; 84484; 85025; 85610; 87040; 87070; 87075; 87077; 87147; 87184; 87186; 87205; 89051; 89060; 93005; 93010; 93926; 94762; 96361; 96365; 97110; 97162; 97165; 97530; 97535; 99285-25; A9270; J0696; J1100; J2250; J2405; J2704; J3010; J3370; J3480; J7030; J7050

== ENCOUNTER → 2022-12-03 | Outpatient (CLI) | payer OTHER ==
[~2022-12-03] MED LIST changes: +BASAGLAR K100 UNIT/6 SC; +BIOTIN5 MG PO; +Cleocin HCl150 MG PO; +ELIQUIS5 MG PO; +HYDR1TAB94 PO; +METO5 PO; +METOPROLOL SUCC25 MG PO; +NOVOLOG100 UNIT/2 SC; +Norco 5-325 Ta1 EACH PO; +PREG50 PO; +TRULICITY1.5 MG/0.1 SC; +VISBIOME 112.51 EACH PO
== END ==
LOC: LAB SHORT 18:28 → LAB 18:28
DX: D51.9 Vitamin B12 deficiency anemia, unspecified (principal)
CPT/HCPCS: 82607; 82746

== ENCOUNTER 2023-01-12 14:08 | Inpatient (IN) | payer OTHER ==
[~2023-01-12] VITALS: Ht 185.4 cm; Wt 102.9 kg
[2023-01-12] VITALS (13 sets, daily range): BP systolic 87–113; BP diastolic 39–77
[2023-01-12 14:37] LABS: BASOPHILS ABSOLUTE AUTO 0.11 K/mm3 (0.00-0.23); BASOPHILS PERCENT AUTO 0 % (0-2); EOSINOPHILS PERCENT AUTO 0 % (0-6); Hematocrit 42.2 % (37.0-53.0); Hemoglobin 14.4 g/dL (13.5-17.5); IMMATURE GRAN PERCENT AUTO 2 % (0-1); LYMPHOCYTES ABSOLUTE AUTO 0.54 K/mm3 (0.84-5.20); LYMPHOCYTES PERCENT AUTO 1 % (21-46); MONOCYTES ABSOLUTE AUTO 1.55 K/mm3 (0.16-1.47); MONOCYTES PERCENT AUTO 3 % (4-13); Mean Corpuscular HGB 29.4 pg (26.0-34.0); Mean Corpuscular HGB Conc 34.1 g/dL (31.5-36.5); Mean Corpuscular Volume 86 fL (80-100); NEUTROPHILS PERCENT AUTO 93 % (41-73); Platelet Count 205 K/mm3 (150-400); RDW Coefficient Variation 15.2 % (11.7-14.2); RDW Standard Deviation 47.3 fL (35.1-46.3); Red Blood Cell Count 4.89 M/mm3 (4.30-5.90)
[2023-01-12 15:01] LABS: International Normalized Ratio 1.2; Prothrombin Time Results 12.5 Sec (9.7-11.5)
[2023-01-12 15:10] LABS: Base Excess Venous 0.7 mmol/L; Bicarbonate Venous 24.2 mmol/L (24.0-30.0); PCO2 Venous 45.6 mmHg (38-42); pH Blood Venous 7.37 (7.34-7.37)
[2023-01-12 15:10] LABS: Albumin/Globulin Ratio 0.7 (0.8-1.8); Bilirubin, Total 2.1 mg/dL (0.1-1.0); Bun/Creatinine Ratio 23.1 (12.0-20.0); Calcium, Blood 9.2 mg/dL (8.5-10.1); Creatinine, Blood 1.95 mg/dL (0.60-1.20); Globulin, Blood 4.1 g/dL (2.2-4.0); Potassium, Blood 4.4 mmol/L (3.5-5.5); Total Protein, Blood 7.1 g/dL (6.4-8.2)
[2023-01-12 15:53] LABS: Influenza A, PCR NEGATIVE (NEGATIVE); Influenza B, PCR NEGATIVE (NEGATIVE); Resp Syncytial Virus, PCR NEGATIVE (NEGATIVE); SARS-Cov-2 (COVID-19) PCR, MMC NEGATIVE (NEGATIVE)
[2023-01-12 17:03] LABS: Source, Urine Clean Catch
[2023-01-12 17:07] LABS: Bilirubin, Urine Neg (Neg); Blood, Urine 1+ (Neg); Color, Urine Amber (P-Yellow); Glucose Qualitative, Urine Neg (Neg); Ketones, Urine Neg (Neg); Leukocyte Esterase, Urine Neg (Neg); Nitrite, Urine Neg (Neg); Protein, Urine 2+ (Neg); Specific Gravity, Urine 1.015 (1.003-1.022); Urobilinogen, Urine NORM (Normal)
[2023-01-12 17:18] LABS: U Amphetamine Screen Not Detected; U Barbituate Screen Not Detected; U Benzodiazapine Screen Not Detected; U Buprenorphine Screen Not Detected; U Cannabinoids Screen Not Detected; U Cocaine Screen Not Detected; U Methadone Screen Not Detected; U Methamphetamine Screen Not Detected; U Opiates Screen Not Detected; U Oxycodone Screen Not Detected; U Phencyclidine Screen Not Detected; U Propoxyphene Screen Not Detected
[2023-01-12 17:19] LABS: Appearance, Urine Clear (Clear)
[2023-01-12 17:21] LABS: Bacteria Few /hpf; Red Blood Cells, Urine 0-2 /hpf (0-2); Squamous Epithelial Cells Not Seen /hpf (Few); White Blood Cells, Urine 0-2 /hpf (0-5)
[2023-01-12] MEDS ORDERED: EUTHYROX50 MC1 PO (22:11)
[2023-01-13] VITALS (80 sets, daily range): BP systolic 71–132; BP diastolic 47–107
[2023-01-13 04:41] LABS: Hematocrit 41.1 % (37.0-53.0); Hemoglobin 13.5 g/dL (13.5-17.5); Mean Corpuscular HGB 29.6 pg (26.0-34.0); Mean Corpuscular HGB Conc 32.8 g/dL (31.5-36.5); Mean Corpuscular Volume 90 fL (80-100); Mean Platelet Volume 11.2 fL (9.1-12.4); Platelet Count 224 K/mm3 (150-400); RDW Coefficient Variation 15.5 % (11.7-14.2); Red Blood Cell Count 4.56 M/mm3 (4.30-5.90)
[2023-01-13 04:50] LABS: White Blood Cell Count 71.05 K/mm3 (4.00-11.30)
[2023-01-13 04:56] LABS: International Normalized Ratio 1.22; Prothrombin Time Results 12.7 Sec (9.7-11.5)
[2023-01-13 05:09] LABS: BAND PERCENT MAN 12 % (0-8); BASOPHILS PERCENT MAN 0 % (0-2); EOSINOPHILS PERCENT MAN 0 % (0-6); LYMPHOCYTES % ATYPICAL MANUAL 1 % (0-0); LYMPHOCYTES ABSOLUTE MAN 1.42 K/mm3 (0.84-5.20); LYMPHOCYTES PERCENT MAN 1 % (21-46); MONOCYTES ABSOLUTE MAN 1.42 K/mm3 (0.16-1.47); MONOCYTES PERCENT MAN 2 % (4-13); SEG NEUTROPHILS PERCENT MAN 84 % (41-73); TOTAL CELLS COUNTED 100
[2023-01-13 05:15] LABS: Albumin, Blood 2.1 g/dL (3.4-5.0); Albumin/Globulin Ratio 0.6 (0.8-1.8); Bilirubin, Total 1.2 mg/dL (0.1-1.0); Calcium, Blood 8.2 mg/dL (8.5-10.1); Creatinine, Blood 1.84 mg/dL (0.60-1.20); Globulin, Blood 3.7 g/dL (2.2-4.0); Magnesium, Blood 1.6 mg/dL (1.6-2.4); Potassium, Blood 4.7 mmol/L (3.5-5.5); Total Protein, Blood 5.8 g/dL (6.4-8.2)
--- NOTE | 2023-01-13 07:15 | NUR ---
CARE ASSUMPTION DURING BEDSISE SHIFT REPORT Glo WHITE RN THE PT IS SITTING IN BED ON 2L NC. PT IS ALERT AND COMMUNICATING W US APPROPRIATELY. PT APPEARS COMFORTABLE DENYING ANY SIGNIFICANT PAIN. PT'S BP IS SOFT W MAP >65 W LEVOPHED GTT RUNNIING AT 7MCG/MIN. MONITOR SHOWING ST 110'S. PT NPO FOR POSSIBLE SURGERY.
--- NOTE | 2023-01-13 15:00 | NUR ---
DRAIN PLACEMENT THIS RN TOOK PT TO CT IMAGING O HAVE CHOLECYSTECTOMY DRAIN TUBE PLACED. DRAIN PLACED W NO COMPLICATIONS, PT TOLERATED THE PROCEDURE WELL. DRAIN IMMEDIATELY DRAINING 350 ML BLACK BILE PLUS ADDITIONAL 50ML THAT WAS SENT TO LAB FOR CULTURES. PT DENYING ANY PAIN AT DRAIN SITE. PT'S SON NOTIFIED OF PROCEDURE BY THE PT.
--- NOTE | 2023-01-13 16:27 | NUR ---
UPDATE DR. GUZMAN CALLED AND NOTIFIED OF PT'S SUSTAINED AFIB W RATES 130-140. PROVIDER NOTIFYING THIS RN THAT HE WILL BE PLACING ORDERS FOR DIGOXIN IV, ORDERS PENDING.
[2023-01-13 17:32] LABS: Hematocrit 35.7 % (37.0-53.0); Hemoglobin 11.9 g/dL (13.5-17.5)
--- NOTE | 2023-01-13 18:00 | NUR ---
DAY SHIFT SUMMARY PT HAS REMAINED ALERT AND ORIENTED THIS SHIFT COMMUNICATING APPROPRIATELY W STAFF. PT'S BP REMAINED STABLE THIS AM BUT BEGAN TO DROP THIS AFTERNOON REQUIRING ADDITIONAL LEVOPHED FROM 8MCG/MIN TO 12MCG/MIN. PT BEGAN SHIFT W MONITOR SHOWING ST 110'S BUT BEGAN GOING IN AND OUT OF AFIB THIS AFTERNOON ULTIMATELY SUSTAINING IN AFIB 110'S-120'S. AFTER THE PT HAD HIS ROBLES DRAIN PLACED HIS HR BEGAN TO RISE PEAKING AT 147BPM, PROVIDER NOTIFIED AND ORDERS FOR LR BOLUS, LABS, DIGOXIN, AND CRITICAL CARE DOCTOR CONSULT WERE GIVEN. AFTER THE PT RECIEVED THE FIRST DOSE OF DIGOXIN HIS HR DECREASED TO AFIB 100'S AND BP STABALIZED. PT HAS BEEN ON 2L NC ALL SHIFT, PT DOES DESAT DOWN TO 86 WHEN OFF OF THE O2. PT AFEBRILE THIS SHIFT W PEAK TEMP OF 99.1. PT PRODUCING VERY LITTLE URINE THIS SHIFT ONLY PEEING 650ML THIS SHIFT. WV ECIEVED A 500ML BOLUS OF LR THIS SHIFT AND A 1L BOLUS OF LR WELL HAVING LR RUNING AT 150ML/HR ALL SHIFT. PT HAD PICC LINE PLACED THIS SHIFT IN RUE. PT HAD CHOLECYSTECTOMY DRAIN PLACED THIS SHIFT WHICH INITIALLY DRAINED 400ML BLACK BILE BUT HAS SLOWED TO VERY LITTLE DRAINAGE SINCE INITIAL PLACEMENT. PT CURRENTLY LYING IN BED REPORTING MINIMAL PAIN. PT ON 2L NC. BP STABLE W LEVOPHED RUNNING AT 10MCG/MIN. DR. CHESTER CONSULTING PT AT BEDSIDE. WILL REPORT TO DEJON LORD
[2023-01-14] VITALS (67 sets, daily range): BP systolic 75–160; BP diastolic 44–97
[2023-01-14 05:15] LABS: Hematocrit 32.2 % (37.0-53.0); Hemoglobin 10.5 g/dL (13.5-17.5); Mean Corpuscular HGB 28.9 pg (26.0-34.0); Mean Corpuscular HGB Conc 32.6 g/dL (31.5-36.5); Mean Corpuscular Volume 89 fL (80-100); Mean Platelet Volume 11.4 fL (9.1-12.4); Platelet Count 182 K/mm3 (150-400); RDW Coefficient Variation 15.6 % (11.7-14.2); RDW Standard Deviation 49.4 fL (35.1-46.3); Red Blood Cell Count 3.63 M/mm3 (4.30-5.90); White Blood Cell Count 31.36 K/mm3 (4.00-11.30)
[2023-01-14 05:45] LABS: Bun/Creatinine Ratio 26.2 (12.0-20.0); Calcium, Blood 7.6 mg/dL (8.5-10.1); Creatinine, Blood 1.72 mg/dL (0.60-1.20)
--- NOTE | 2023-01-14 07:16 | NUR ---
SHIFT SUMMARY: Titrated levophed from 10mcg/min down to 4mcg/min overnight. Adequate urine output, 2 bowel movements overnight. Pain improved from yesterday. Biliary drain in place with moderate drainage. CHG bath done, patient bathed, linen and gown changed. Noted Right buttock wound that was not noted yesterday. Photos in chart. Pt refused turns at times yesterday, stating that the only way he could get comfortable was lying on his right side. Pt re-educated on pressure injury prevention and he agrees to turn to left side.
--- NOTE | 2023-01-14 08:10 | NUR ---
AM NOTE... ASSUMED CARE OF PT AT 0700, PT IS A&Ox4. HE IS ON LEVOPHED AT 4MCG/MIN TO KEEP MAPS>65. HE IS IN AFIB IN THE 110'S-120'S WITH OCC PVCs. 1+ EDEMA NOTED TO HIS BLE, SCDs ARE IN PLACE. HE IS ON 2L NC WITH O2 SATS>90% L/S CLEAR IN THE UPPER LOBES COARSE AND DIM IN THE LOWER LOBES. PT'S BT ARE PRESENT AND HYPOACTIVE, ABD IS SOFT AND SLIGHTLY TENDER TO PALPATION ON THE RIGHT SIDE. DRAIN PRESENT TO THE RUQ WITH DARK BROWN/BLACK BILE NOTED IN THE TUBING. PT HAD A MED SOFT WHITTEN BM THIS AM. CALL LIGHT IN REACH WILL CONTINUE TO MONITOR.
[2023-01-14 10:39] LABS: Anti-Xa UFH, PHA Monitoring 0.67 IU/mL; International Normalized Ratio 1.1; Prothrombin Time Results 11.5 Sec (9.7-11.5)
--- NOTE | 2023-01-14 16:59 | NUR ---
Echocardiogram using 0.60ml of Definity contrast performed.
--- NOTE | 2023-01-14 18:46 | NUR ---
SHIFT SUMMARY: NO ACUTE CHANGES SINCE ASSUMING CARE AT APPROX 1500. PT A&O TO ALL, PLEASANT & CONVERSANT W/ STAFF. HAS GENERALIZED C/O NEUROPATHY, LYRICA RESTARTED THIS EVENING. DENIES SOB, ON 2L NC W/ O2 SATS > 95%. MONITOR SHOWS AFIB W/ HR 90-120s, INCREASED W/ EXERTION. BP STABLE W/ LEVOPHED DRIP OFF SINCE APPROX 0940 THIS AM. PT DENIES CURRENT GI COMPLAINTS, STS HAVING NO APPETITE. TOLERATING MINIMAL AMNT CLEAR LIQUIDS WELL. OCCASIONAL INCONTINENT UNFORMED STLS THAT ARE BROWN/ GREEN IN COLOR. CHOLECYSTECTOMY DRAIN IN PLACE TO RUQ W/ DARK GREEN DRAINAGE NOTED IN BAG. CONDOM CATH IN PLACE, DRAINING DARK YELLOW URINE, PT DENIES URINARY DIFFICULTIES. SKIN CONDITION OVERALL FRAGILE, ECCHYMOTIC. RUQ DRAIN SITE WNL. WILL CONTINUE TO MONITOR & UPDATE NEEDED.
--- NOTE | 2023-01-14 22:12 | NUR ---
ASSUMED CARE: Assumed care of patient at 0700. He had an incontient bowel movement at 0800, jeremias care, linen and gown change done. Foam wound dressing soiled- removed. Repositioned patient to left side with pillow support. Pt states that he always sleeps on his right side and he is uncomfortable on his left. Re-education on pressure injury prevention done, pt needs continued reinforcement. He asked to be turned to his back shorly after turning to his left side, and he frequently rolls himself back to his right side, where there is a pressure injury on his right buttock.
[2023-01-15] VITALS (34 sets, daily range): BP systolic 82–138; BP diastolic 39–114
[2023-01-15 04:11] LABS: Hematocrit 29.3 % (37.0-53.0); Hemoglobin 9.4 g/dL (13.5-17.5); Mean Corpuscular HGB 28.9 pg (26.0-34.0); Mean Corpuscular HGB Conc 32.1 g/dL (31.5-36.5); Mean Corpuscular Volume 90 fL (80-100); Mean Platelet Volume 10.9 fL (9.1-12.4); Platelet Count 174 K/mm3 (150-400); RDW Coefficient Variation 15.5 % (11.7-14.2); RDW Standard Deviation 50.3 fL (35.1-46.3); Red Blood Cell Count 3.25 M/mm3 (4.30-5.90); White Blood Cell Count 16.19 K/mm3 (4.00-11.30)
[2023-01-15 04:33] LABS: Bun/Creatinine Ratio 25.6 (12.0-20.0); Calcium, Blood 7.5 mg/dL (8.5-10.1); Creatinine, Blood 1.76 mg/dL (0.60-1.20); Magnesium, Blood 1.7 mg/dL (1.6-2.4); Potassium, Blood 3.4 mmol/L (3.5-5.5)
--- NOTE | 2023-01-15 05:22 | NUR ---
SHIFT SUMMARY: BP stable overnight, MAP maintained above 65 off pressors. On 2L nasal cannula. Right side of lung sounds very diminished, and he desats when lying on left side. He is now in Afib with frequent PVCs, rate in the low 100s. Pt turned every 2 hours. Requiring frequent patient care, had many loose incontinent bowel movements overnight. He is very weak/ deconditioned.
--- NOTE | 2023-01-15 08:35 | NUR ---
ASSUMED CARE / DR GUZMAN: REPORT RECEIVED FROM NORMAN Abad RN. ASSUMED CARE OF THIS PT AT APPROX 0700. ON ASSESSMENT, THE PT IS A&O TO ALL, PLEASANT & CONVERSANT W/ STAFF MEMBERS. LS DIM T/O, PT ON 2L NC W/ O2 SATS > 92%. OCCASIONAL PRODUCTIVE COUGH NOTED W/ MOD AMNTS THICK WHITTEN SPUTUM THAT PT IS ABLE TO EXPECTORATE W/O DIFFICULTY. MONITOR SHOWS AFIB W/ BBB, FREQUENT PVCs. HR 90-120s, INCREASED W/ EXERTION OR ANXIETY. PT HAS NO CURRENT GI COMPLAINTS, TOLERATING PO INTAKE OF CLEAR LIQUID DIET WELL W/ NO INCREASED ABD PAIN. INCONTINENT UNFORMED BMs. RUQ CHOLECYSTOSTOMY DRAIN W/ SMALL AMNTS DARK GREEN/BROWN OUTPUT NOTED. MALE INCONTINENCE WRAP IN PLACE FOR URINARY INCONTINENCE, PT OCCASIONALLY REQUESTS URINAL, VOIDING YELLOW URINE. SKIN CONDITION OVERALL FRAGILE, NUMEROUS AREAS OF ECCHYMOSIS & ABRASIONS NOTED. Q2H REPOSITIONING TO MAINTAIN SKIN INTEGRITY. PROVIDER AT BEDSIDE THIS AM TO EVAL PT. ORDERS TO HOLD AM METOPROLOL DOSE IF SBP <100, OKAY FOR TX TO PCU STATUS IF BP REMAINS STABLE W/ NO PRESSORS NEEDED AFTER METOPROLOL ADMIN. THIS RN REQUESTS IONIZED CA VALUE R/T LOW CA ON AM BLOODWORK, ORDERS PLACED & RESULTS TO PROVIDER - ORDERS FOR CALCIUM GLUCONATE REPLETION. CBG CHECKS & INSULIN COVERAGE CHANGED TO AC&HS. CXR ORDERED. NO OTHER CHANGES AT THIS TIME. WILL CONTINUE OT MONITOR & UPDATE NEEDED.
--- NOTE | 2023-01-15 14:40 | NUR ---
TRANSFER TO PCU: REPORT HAS BEEN GIVEN TO DIANE Cardona RN TO ASSUME CARE. ALL OF PT's BELONGINGS HAVE BEEN GATHERED & PT HAS BEEN TRANSFERRED TO U-03 AT APPROX 1435.
--- NOTE | 2023-01-15 16:29 | NUR ---
Per Renae Calderon RN, offered the pt full liquid diet this morning. New order placed at this time for full liquid diet; clear liquids are available from PCU pantry if the pt changes his mind.
--- NOTE | 2023-01-15 17:58 | NUR ---
PT TOLERATED FULL LIQUID DIET WELL. PT COMPLAINS OF LEFT SHOULDER PAIN FROM OLD INJURY. PT REQUIRED ASSISTANCE WITH DINNER DUE TO WEAKNESS IN HANDS.
--- NOTE | 2023-01-15 18:38 | NUR ---
Pt was restarted on Metoprolol this morning, noted by documentation in eMAR. Pt's blood pressure has been on the low end of normal since arrival to PCU today, with occasional pressures less than 90 mmHg systolic, and one recent MAP of 55. Pt's mentation is good when awake, and activity level has been lying in bed, with one session with Physical therapist. Pt refused OOB to chair, stated that he was too tired. Has had a good appetite for dinner, states that he was really hungry. Tolerated full liquid diet well.
--- NOTE | 2023-01-15 20:00 | NUR ---
ASSUMED CARE OF PT AT 1915. REPORT RECEIVED AT BEDSIDE. PT PRESENTS IN BED. ALERT AND ORIENTED. PLEASANT AND COOPERATIVE WITH CARE AND ASSESSMENT. DISCUSSED WITH PT MOVEMENT IN BED TO HELP PROTECT SKIN INTEGRITY. PT VERBALIZES UNDERSTANDING. WILL REVIEW CHART AND PLAN OF CARE FOR THIS PT.
[2023-01-16] VITALS: BP 88/42
--- NOTE | 2023-01-16 02:34 | NUR ---
PT REMAINS WITH SOMEWHAT LOW BLOOD PRESSURES. ASYMPTOMATIC WITH THIS. PT REMAINS ALERT AND IS VERY INTERACTIVE.
[2023-01-16 04:00] VITALS: BP 93/53
[2023-01-16 05:55] LABS: Bun/Creatinine Ratio 27.3 (12.0-20.0); Calcium, Blood 7.8 mg/dL (8.5-10.1); Creatinine, Blood 1.76 mg/dL (0.60-1.20); Potassium, Blood 3.9 mmol/L (3.5-5.5)
[2023-01-16 07:55] VITALS: BP 92/55
--- NOTE | 2023-01-16 10:24 | NUR ---
PT AGREED TO GET A BED BATH AND UP INTO A CHAIR AFTER BEING MEDICATED FOR PAIN. HE IS NOW IN THE CHAIR COMFORTABLY WITH NO PRESENT CONCERNS. PT WAS EDUCATED ON THE BENEFITS OF GETTING UP OUT OF BED AND TO WAIT FOR ASSISTANCE TO RETURN TO THE BED FROM THE CHAIR.
[2023-01-16 12:19] VITALS: BP 99/47
--- NOTE | 2023-01-16 14:30 | NUR ---
PT STATED HE FELT SOB. 02 INCREASED TO KEEP SATS >90% AND EDUCATED ON THE BENEFITS OF USING INCENTIVE SPIROMETER AND COUGHING AND DEEP BREATHING.
[2023-01-16 17:53] VITALS: BP 90/53
[2023-01-16 21:07] VITALS: BP 91/52
[2023-01-17 00:26] VITALS: BP 96/65
[2023-01-17 03:55] VITALS: BP 97/56
[2023-01-17 04:16] LABS: Hematocrit 27.1 % (37.0-53.0); Hemoglobin 8.6 g/dL (13.5-17.5); Mean Corpuscular HGB 29.3 pg (26.0-34.0); Mean Corpuscular HGB Conc 31.7 g/dL (31.5-36.5); Mean Corpuscular Volume 92 fL (80-100); Mean Platelet Volume 10.5 fL (9.1-12.4); Platelet Count 195 K/mm3 (150-400); RDW Coefficient Variation 15.2 % (11.7-14.2); RDW Standard Deviation 50.9 fL (35.1-46.3); Red Blood Cell Count 2.94 M/mm3 (4.30-5.90); White Blood Cell Count 8.73 K/mm3 (4.00-11.30)
[2023-01-17 04:38] LABS: Calcium, Blood 8.1 mg/dL (8.5-10.1); Creatinine, Blood 1.68 mg/dL (0.60-1.20); Potassium, Blood 4.2 mmol/L (3.5-5.5)
--- NOTE | 2023-01-17 05:22 | NUR ---
SHIFT SUMMARY THIS RN ASSUMED CARE OF PATIENT AT 1900. PT A&O X4. ON 4L VIA NC WITH SPO2 >92%. AFIB WITH HR 80-90'S. SBP CONTINUES TO BE 90'S WITH MAP >65. PRODUCTION CONTROL SUPERVISOR IRINA CONSULTED ABOUT BILIARY DRAIN D/T SUCTION APPEARING DEFECTIVE/DEFORMED. CHARGE NURSE IRINA TO BEDSIDE TO LOOK AT DRAIN AND REPLACE WITH NEW DRAIN BAG. BILIARY DRAIN WITH 225MLS OF DARK COLORED OUTPUT, WHERE IT HAD PREVIOUSLY NOT DRAINED ANYTHING DURING THIS SHIFT OR THE PREVIOUS SHIFT. PT DENIED ABDOMINAL PAIN T/O THIS SHIFT. AFEBRILE. REPOSITIONING Q2HRS PT ALLOWS. BED IN LOWEST POSITION AND CALL LIGHT WITHIN REACH. THIS RN WILL REPORT TO ONCOMING RN.
[2023-01-17 07:45] VITALS: BP 106/75
--- NOTE | 2023-01-17 07:53 | NUR ---
Pt assisted to dangle on side of bed for breakfast. Refused OOB to chair at bedside because he said "It's too much work; I'm saving that to do with the therapist."
[2023-01-17 12:21] VITALS: BP 115/66
[2023-01-17 16:12] VITALS: BP 107/63
--- NOTE | 2023-01-17 17:45 | NUR ---
PT REPORTS PAIN MANAGED BETTER WITH REST AND WAS ABLE TO TAKE AN AFERNOON NAP. HE STATES HE DOES NOT LIKE THE FOOD OPTIONS PROVIDED ON A MECHANICAL SOFT DIET AND REQUESTED TO HAVE HIS DIET ADVANCED TO AN ADA DIET. AN ADDITIONAL TRAY IS ORDERED. PT WOULD LIKE TO UTILIZE THE ADAPTIVE SILVERWARE FROM OT FOR FUTURE MEALS.
[2023-01-17 20:15] VITALS: BP 117/72
[2023-01-18 00:01] VITALS: BP 116/51
--- NOTE | 2023-01-18 05:01 | NUR ---
SHIFT SUMMARY THIS RN ASSUMED CARE OF PATIENT AT 1900. PT A&O X4. ABLE TO MAKE NEEDS KNOWN. AFIB WITH HR 80-90'S. BP STABLE WITH SBP 110'S. AFEBRILE. ON 4L VIA NC WITH SPO2 >92%. MEDICATING PER EMAR FOR LEG PAIN. REPOSITIONING QHRS. PT OFTEN REFUSES REPOSITIONING. BILIARY DRAIN PATENT WITH DARK OUTPUT. BED IN LOWEST POSITION AND CALL LIGHT WITHIN REACH. THIS RN WILL REPORT TO ONCOMING RN.
[2023-01-18 08:37] VITALS: BP 119/69
[2023-01-18] MEDS ORDERED: METO25 PO (11:02)
[2023-01-18] MEDS ORDERED: METR500 PO (11:02)
[2023-01-18] MEDS ORDERED: INSULANPEN SC (11:02)
[2023-01-18 11:45] VITALS: BP 116/72
--- NOTE | 2023-01-18 12:12 | NUR ---
DISCHARGE HOME W/ HOME HEALTH PT A&O X4. VSS. SPO2 > 92% ON 2-4L NC W/ PT REPORT OF WEARING "2L, SOMETIMES MORE" AT HOME. PT REPORTING PAIN IN BILAT HANDS & FEET, STATING "MY GOUT GETS SO BAD. THE PAIN WILL OFTEN LAST 5-7 DAYS. I HAVE TO HAVE MY ALLOPURINOL." MD GUZMAN W/ ORDER TO RESUME HOME ALLOPURINOL. ALSO W/ ORDER FOR DC HOME W/ HH. BILIARY DRAIN REMAINS IN PLACE. DC INSTRUCTIONS / FOLLOW UP APPOINTMENTS REVIEWED W/ PT & PRINTED INSTRUCTIONS SENT HOME W/ PT. PIV & PICC LINE REMOVED WNL. PT ASSISTED TO WHEELCHAIR W/ GB. PT TAKEN OUT IN WHEELCHAIR W/ ALISSA @ APPROX 1215.
== END 2023-01-18 12:23 | disposition home or self-care (01) | DRG 871 ==
LOC: ER 14:08 → ICUE 20:27 → PCU 01-15 14:31
PROVIDERS: Emergency Medicine; Internal Medicine; Internal Medicine Critical Care Medicine; Nurse Practitioner Acute Care; Pharmacist; ADMIT Internal Medicine
PROC: 3E033XZ Introduction of Vasopressor into Peripheral Vein, Percutaneous Approach (ICD-10-PCS; principal; 2023-01-12)
PROC: 3E03329 Introduction of Other Anti-infective into Peripheral Vein, Percutaneous Approach (ICD-10-PCS; 2023-01-12)
PROC: 0F9930Z Drainage of Common Bile Duct with Drainage Device, Percutaneous Approach (ICD-10-PCS; 2023-01-13)
PROC: 02H633Z Insertion of Infusion Device into Right Atrium, Percutaneous Approach (ICD-10-PCS; 2023-01-14)
DX: A41.50 Gram-negative sepsis, unspecified (principal); J96.21 Acute and chronic respiratory failure with hypoxia; R65.21 Severe sepsis with septic shock; I13.0 Hypertensive heart and chronic kidney disease with heart failure and stage 1 through stage 4 chronic kidney disease, or unspecified chronic kidney disease; E87.1 Hypo-osmolality and hyponatremia; J98.11 Atelectasis; I50.32 Chronic diastolic (congestive) heart failure; I50.22 Chronic systolic (congestive) heart failure; Z20.822 Contact with and (suspected) exposure to COVID-19; K82.A1 Gangrene of gallbladder in cholecystitis; E11.40 Type 2 diabetes mellitus with diabetic neuropathy, unspecified; E83.51 Hypocalcemia; E11.22 Type 2 diabetes mellitus with diabetic chronic kidney disease; N18.30 Chronic kidney disease, stage 3 unspecified; J44.9 Chronic obstructive pulmonary disease, unspecified; E78.00 Pure hypercholesterolemia, unspecified; M10.9 Gout, unspecified; E03.9 Hypothyroidism, unspecified; E66.01 Morbid (severe) obesity due to excess calories; G47.33 Obstructive sleep apnea (adult) (pediatric); I48.0 Paroxysmal atrial fibrillation; Z99.81 Dependence on supplemental oxygen; Z79.899 Other long term (current) drug therapy; Z79.4 Long term (current) use of insulin; Z79.01 Long term (current) use of anticoagulants; Z79.891 Long term (current) use of opiate analgesic; Z91.148 Patient's other noncompliance with medication regimen for other reason; Z79.2 Long term (current) use of antibiotics; Z68.29 Body mass index [BMI] 29.0-29.9, adult; Z98.890 Other specified postprocedural states; Z86.79 Personal history of other diseases of the circulatory system; Z79.890 Hormone replacement therapy; Z91.018 Allergy to other foods; Z88.8 Allergy status to other drugs, medicaments and biological substances
CPT/HCPCS: 0241U; 36415; 36569; 51701; 71045; 74177; 75989; 76705; 80048; 80053; 81001; 82330; 82803; 82947; 83605; 83690; 83735; 83880; 84443; 84484; 85014; 85018; 85025; 85027; 85520; 85610; 85730; 86850; 86900; 86901; 87040; 87070; 87075; 87076; 87205; 93005; 93010; 94640; 94664; 94762; 96361-59; 96365-59; 96367-59; 96368; 96375-59; 97110; 97163; 97530; 99291-25; A9270; C1751; C1769; C8929; C9113; J0612; J0696; J1160; J1644; J2405; J2543; J3010; J3370; J7030; J7050; J7060; J7120; P9047; Q9957; Q9967

== ENCOUNTER 2023-01-27 14:10 | Inpatient (IN) | payer OTHER ==
[~2023-01-27] VITALS: Ht 185.4 cm; Wt 96.7 kg
[~2023-01-27 14:10] MED LIST changes: +EUTHYROX50 MC1 PO; +METO25ER PO; +METR500 PO
[2023-01-27 14:46] LABS: BASOPHILS ABSOLUTE AUTO 0.04 K/mm3 (0.00-0.23); BASOPHILS PERCENT AUTO 0 % (0-2); EOSINOPHILS ABSOLUTE AUTO 0.01 K/mm3 (0.00-0.68); EOSINOPHILS PERCENT AUTO 0 % (0-6); Hematocrit 36.1 % (37.0-53.0); Hemoglobin 11.5 g/dL (13.5-17.5); IMMATURE GRAN ABSOLUTE AUTO 0.08 K/mm3 (0.00-0.10); IMMATURE GRAN PERCENT AUTO 1 % (0-1); LYMPHOCYTES ABSOLUTE AUTO 0.86 K/mm3 (0.84-5.20); LYMPHOCYTES PERCENT AUTO 9 % (21-46); MONOCYTES ABSOLUTE AUTO 0.31 K/mm3 (0.16-1.47); MONOCYTES PERCENT AUTO 3 % (4-13); Mean Corpuscular HGB 28.5 pg (26.0-34.0); Mean Corpuscular HGB Conc 31.9 g/dL (31.5-36.5); Mean Corpuscular Volume 90 fL (80-100); Mean Platelet Volume 10.5 fL (9.1-12.4); NEUTROPHILS ABSOLUTE AUTO 8.02 K/mm3 (1.96-9.15); NEUTROPHILS PERCENT AUTO 86 % (41-73); Platelet Count 330 K/mm3 (150-400); RDW Coefficient Variation 16.7 % (11.7-14.2); RDW Standard Deviation 53.7 fL (35.1-46.3); Red Blood Cell Count 4.03 M/mm3 (4.30-5.90); White Blood Cell Count 9.32 K/mm3 (4.00-11.30)
[2023-01-27 15:00] LABS: Albumin, Blood 2.4 g/dL (3.4-5.0); Albumin/Globulin Ratio 0.6 (0.8-1.8); Bilirubin, Total 0.6 mg/dL (0.1-1.0); Bun/Creatinine Ratio 35.7 (12.0-20.0); Calcium, Blood 8.9 mg/dL (8.5-10.1); Creatinine, Blood 1.29 mg/dL (0.60-1.20); Globulin, Blood 3.8 g/dL (2.2-4.0); Potassium, Blood 4.3 mmol/L (3.5-5.5); Total Protein, Blood 6.2 g/dL (6.4-8.2)
[2023-01-27 15:04] LABS: International Normalized Ratio 1.12; Prothrombin Time Results 11.7 Sec (9.7-11.5)
[2023-01-28 00:22] VITALS: BP 104/48
[2023-01-28 02:32] VITALS: BP 86/62
[2023-01-28 04:17] LABS: BASOPHILS ABSOLUTE AUTO 0.07 K/mm3 (0.00-0.23); BASOPHILS PERCENT AUTO 1 % (0-2); EOSINOPHILS ABSOLUTE AUTO 0.08 K/mm3 (0.00-0.68); EOSINOPHILS PERCENT AUTO 1 % (0-6); Hematocrit 34.4 % (37.0-53.0); Hemoglobin 10.9 g/dL (13.5-17.5); IMMATURE GRAN ABSOLUTE AUTO 0.08 K/mm3 (0.00-0.10); IMMATURE GRAN PERCENT AUTO 1 % (0-1); LYMPHOCYTES PERCENT AUTO 15 % (21-46); MONOCYTES ABSOLUTE AUTO 0.56 K/mm3 (0.16-1.47); MONOCYTES PERCENT AUTO 7 % (4-13); Mean Corpuscular HGB 28.8 pg (26.0-34.0); Mean Corpuscular HGB Conc 31.7 g/dL (31.5-36.5); Mean Corpuscular Volume 91 fL (80-100); Mean Platelet Volume 10.2 fL (9.1-12.4); NEUTROPHILS ABSOLUTE AUTO 6.53 K/mm3 (1.96-9.15); NEUTROPHILS PERCENT AUTO 76 % (41-73); Platelet Count 271 K/mm3 (150-400); RDW Coefficient Variation 17.1 % (11.7-14.2); RDW Standard Deviation 56.1 fL (35.1-46.3); Red Blood Cell Count 3.79 M/mm3 (4.30-5.90); White Blood Cell Count 8.62 K/mm3 (4.00-11.30)
[2023-01-28 04:42] LABS: Albumin/Globulin Ratio 0.5 (0.8-1.8); Bilirubin, Total 0.4 mg/dL (0.1-1.0); Bun/Creatinine Ratio 31.1 (12.0-20.0); Calcium, Blood 8.3 mg/dL (8.5-10.1); Creatinine, Blood 1.35 mg/dL (0.60-1.20); Globulin, Blood 3.8 g/dL (2.2-4.0); Magnesium, Blood 1.9 mg/dL (1.6-2.4); Potassium, Blood 4.3 mmol/L (3.5-5.5); Total Protein, Blood 5.8 g/dL (6.4-8.2)
--- NOTE | 2023-01-28 05:55 | NUR ---
SHIFT SUMMARY PT A&OX4, AND COOPERATIVE WITH CARE. NO ACUTE CHANGES. MEDICATED FOR PAIN ONCE. NPO SINCE MIDNIGHT. SMALL AMOUNT OF BROWN DRAINAGE IN URACELL. 1-2 ASSIST TO BSC. CALLS APPROPRIATELY, CALL LIGHT WITHIN REACH.
[2023-01-28 07:41] VITALS: BP 104/59
[2023-01-28 14:23] VITALS: BP 102/63
[2023-01-28 20:21] VITALS: BP 95/65
[2023-01-29 03:01] VITALS: BP 117/67
--- NOTE | 2023-01-29 05:03 | NUR ---
SHIFT SUMMARY PT A&OX4, AND COOPERATIVE WITH CARE. NO ACUTE CHANGES. MEDICATED FOR PAIN ONCE. TOLERATING PO INTAKE. 20 ML BROWN/LIQUID OUTPUT IN URESIL. 1-2 ASSIST TO BSC, CALLS APPROPRIATLY, CALL LIGHT WITHIN REACH.
[2023-01-29 05:07] LABS: Hematocrit 31.2 % (37.0-53.0); Hemoglobin 9.7 g/dL (13.5-17.5); Mean Corpuscular HGB 28.4 pg (26.0-34.0); Mean Corpuscular HGB Conc 31.1 g/dL (31.5-36.5); Mean Corpuscular Volume 91 fL (80-100); Mean Platelet Volume 10.7 fL (9.1-12.4); Platelet Count 261 K/mm3 (150-400); RDW Coefficient Variation 16.8 % (11.7-14.2); RDW Standard Deviation 55.4 fL (35.1-46.3); Red Blood Cell Count 3.42 M/mm3 (4.30-5.90); White Blood Cell Count 6.92 K/mm3 (4.00-11.30)
[2023-01-29 06:30] LABS: Calcium, Blood 8.1 mg/dL (8.5-10.1); Creatinine, Blood 1.44 mg/dL (0.60-1.20); Potassium, Blood 4.6 mmol/L (3.5-5.5)
[2023-01-29 06:59] VITALS: BP 107/61
[2023-01-29 14:40] VITALS: BP 118/75
--- NOTE | 2023-01-29 18:01 | NUR ---
SHIFT SUMMARY S/P BLOCKED BILIARY DRAIN, A/OX4, VSS, TOLERATING PO, PAIN WELL MANAGED, HE ONLY TOLERATED BEING UP TO THE CHAIR FOR A FEW HOURS TODAY, HE REPORTED THAT "IF HE IS IN A CHAIR FOR TOO LONG HIS LEGS GO NUMB AND BECOME TOO WEAK TO STAND UP", HE WAS ABLE TO STAND WITH MODERATE ASSISTANCE AND FWW TO GO BACK TO BED. NO OTHER EVENTS THIS SHIFT, CALL LIGHT IN REACH.
[2023-01-29 19:28] VITALS: BP 89/61
[2023-01-29 19:29] VITALS: BP 90/55
[2023-01-29 19:35] VITALS: BP 90/55
--- NOTE | 2023-01-29 20:25 | NUR ---
DRESSING CHANGES TO LEFT OUTTER LEG.
[2023-01-30 03:50] VITALS: BP 149/80
--- NOTE | 2023-01-30 05:06 | NUR ---
SHIFT SUMMARY ACUTE CHOLECYCTITIS W/ RUQ BILIARY DRAIN TUBE. SITE DRESSING C/D/I, MINIMAL OUTPUT IN DRAIN. VSS, O2 @2L NC, URINE URGENCY W/ USE OF URINAL AND ATTENDS IN PLACE. PT REPORTS BASELINE NEUROPATHY TO BLLE, REPORTED GOUT IN HANDS, VISIBLE JOINT SWELLING. RLE NOTICABLY LARGER IN SIZE, PT REPORTS BASELINE EDEMA. A&OX4, PLEASANT AND COOPERATIVE. NO ACUTE CHANGES THIS SHIFT. PT REPORTS FAMILY INQUIRING ABOUT REHAB AT [place]. CALL LIGHT W/IN REACH.
[2023-01-30 07:26] VITALS: BP 127/74
[2023-01-30 14:43] VITALS: BP 122/92
--- NOTE | 2023-01-30 16:23 | NUR ---
SHIFT SUMMARY- PT IS A/O, COOPERATIE. HIS APPETITE IS POOR. HE REFUSED TO WORK WITH PT AND OT THIS SHIFT. SON WAS AT BEDSIDE THIS AFTERNOON. POWER TOOL REPAIR TECHNICIAN WORKING ON PLACMENT AT [facility] IN [place] PER PT REQUEST. PT RECIEVING IV ABX. DRAIN SITE LOOKS GOOD, NO DRAINAGE THIS SHIFT. HIS BED IS IN THE LOW POSTION AND CALL LIGHT IS WITIN REACH.
[2023-01-30 19:12] VITALS: BP 126/79
--- NOTE | 2023-01-30 20:03 | NUR ---
DRAINED FLUSHED DRAIN FLUSHED AT SHIFT CHANGE BY DAYSHIFT EXHIBITION SPECIALISTRISA ANGELO PER ORDERS WITH 6 CC OF NS. DRAINED FLUSHED WITHOUT DIFFICULTY.
[2023-01-31 03:34] VITALS: BP 122/71
--- NOTE | 2023-01-31 06:04 | NUR ---
SHIFT SUMMARY PT HAS RESTED OFF AND ON T/O THE NIGHT. PT MEDICATED FOR PAIN PRN PER EMAR. BILIARY DRAIN WITH MINIMAL OUTPUT THIS SHIFT, UNCHANGED FROM PRIOR SHIFTS PER PREVIOUS NURSE'S NOTES, SKIN SURROUNDING DRAIN SITE WNL. PT HAS HAD NAUSEA AND VOMITTING SHIFT THIS SHIFT, LIGHT BROWN AND MUCOUSY. ZOFRAN PER EMAR. PT VOIDING, VITALS STABLE. IV ANTIBIOTICS CONTINUED. NEW IV ESTABLISHED BY SCHOOL BASED THERAPIST THIS SHIFT IV TO LEFT ARM INFILTRATED. PLAN IS FOR PICC PLACEMENT FOR OUTPT ANTIBIOTICS AND DC SNF. BED IN LOWEST POSITION, CALL LIGHT WITHIN REACH.
[2023-01-31 07:10] VITALS: BP 117/74
--- NOTE | 2023-01-31 16:14 | NUR ---
SHIFT SUMMARY: NO SIGNIFICANT CHANGES DURING SHIFT. PATIENT IS A&OX4. VS ARE WNL AND IS ON HIS BASELINE OXYGEN OF 2L NC. PAIN IS MANAGED WITH PERCOCET PO. HE HAS HIS URICEL DRAIN ON HIS RLQ WITH LITTLE TO NO OUTPUT SO FAR THIS SHIFT. ACCORDIAN IS COMPRESSED FOR THE URICEL. HE IS TOLERATING SMALL AMOUNTS OF PO INTAKE. PATIENT IS INCONTINENT/CONTINENT BUT CALLS WHEN HE IS WET/WANTS TO USE THE URNAL. PATIENT REFUSES TO WORK WITH PHYSICAL THERAPY AGAIN THIS AFTERNOON, HOWEVER THE PLAN CHANGED FROM SNF TO HOME WITH HOME HEALTH WITH HIS SON WHO WILL COME PICK THE PATIENT UP IN THE MORNING.
[2023-01-31 16:38] VITALS: BP 154/70
--- NOTE | 2023-01-31 16:41 | NUR ---
ASSUMED CARE OF PT FROM YOVANNY Baltazar RN.
[2023-01-31 19:20] VITALS: BP 142/83
[2023-02-01 02:30] VITALS: BP 137/84
--- NOTE | 2023-02-01 04:30 | NUR ---
SHIFT SUMMARY PATIENT IS POD3 FOR URECIL DRAIN. MINIMAL OUTPUT THIS SHIFT. DRAIN IS COMPRESSED AND FLUSHED THIS SHIFT.PATIENT IS MEDICATED FOR PAIN AND TOLERATING WELL. IV ABX INFUSED. PATIENT TOLERATING PO INTAKE AND USING URINAL TO VOID. REPOSITIONS WITH ASSISTANCE. PLAN FOR DISCHARGE HOME WITH POSSIBLE HOME HEALTH. VSS, CALL LIGHT IN REACH.
[2023-02-01 07:25] VITALS: BP 108/74
[2023-02-01] MEDS ORDERED: Rena-Vite Tabl0.8 MG PO (10:35)
[2023-02-01] MEDS ORDERED: AMOCLA875 PO (10:40)
--- NOTE | 2023-02-01 14:00 | NUR ---
DISCHARGE: PACKET PRINTED AND PT EDUCATED. EDUCATION FOR URESIL DRAIN GIVEN TO PT'S SON. PT SON VERY RECEPTIVE AND VERBALIZED UNDERSTANDING. SUPPLIES ALSO GIVEN TO FLUSH DRAIN [address] WAYNE. PT SET UP TO HAVE HOME HEALTH VISITS, CONFIRMED THIS WITH ALDO AWAN. PT LEFT UNIT VIA WHEELCHAIR AT ABOUT 1320 WITH MED SANDOVAL
== END 2023-02-01 12:55 | disposition home health service (06) | DRG 920 ==
LOC: ER 14:10 → SURS 14:11
PROVIDERS: Emergency Medicine; Internal Medicine; Nurse Practitioner Acute Care; ADMIT Internal Medicine
DX: T85.618A Breakdown (mechanical) of other specified internal prosthetic devices, implants and grafts, initial encounter (principal); I13.0 Hypertensive heart and chronic kidney disease with heart failure and stage 1 through stage 4 chronic kidney disease, or unspecified chronic kidney disease; I50.42 Chronic combined systolic (congestive) and diastolic (congestive) heart failure; J96.11 Chronic respiratory failure with hypoxia; K81.0 Acute cholecystitis; Y83.8 Other surgical procedures as the cause of abnormal reaction of the patient, or of later complication, without mention of misadventure at the time of the procedure; I95.9 Hypotension, unspecified; I48.0 Paroxysmal atrial fibrillation; G47.33 Obstructive sleep apnea (adult) (pediatric); K42.9 Umbilical hernia without obstruction or gangrene; J44.9 Chronic obstructive pulmonary disease, unspecified; R54 Age-related physical debility; N18.30 Chronic kidney disease, stage 3 unspecified; E11.649 Type 2 diabetes mellitus with hypoglycemia without coma; E11.40 Type 2 diabetes mellitus with diabetic neuropathy, unspecified; E11.22 Type 2 diabetes mellitus with diabetic chronic kidney disease; M10.9 Gout, unspecified; Z86.19 Personal history of other infectious and parasitic diseases; Z91.013 Allergy to seafood; Z91.018 Allergy to other foods; Z79.01 Long term (current) use of anticoagulants; Z79.890 Hormone replacement therapy; Z79.4 Long term (current) use of insulin; Z79.899 Other long term (current) drug therapy; Z91.199 Patient's noncompliance with other medical treatment and regimen due to unspecified reason; Z89.421 Acquired absence of other right toe(s); Z98.890 Other specified postprocedural states; Z87.19 Personal history of other diseases of the digestive system; Z87.39 Personal history of other diseases of the musculoskeletal system and connective tissue
CPT/HCPCS: 36415; 74177; 80048; 80053; 82947; 83690; 83735; 85025; 85027; 85610; 86850; 86900; 86901; 87040; 92610; 93005; 93010; 94760; 96365-59; 96375; 96376; 97166; 97530; 99285-25; A9270; C9113; G0378; J1815; J2270; J2405; J2543; J7030; J7042; Q9967

== ENCOUNTER 2023-02-05 10:08 | Inpatient (IN) | payer OTHER ==
[~2023-02-05] VITALS: Ht 185.4 cm; Wt 103.8 kg
[~2023-02-05 10:08] MED LIST changes: +AMOCLA875 PO
[2023-02-05 10:56] LABS: BASOPHILS ABSOLUTE AUTO 0.06 K/mm3 (0.00-0.23); BASOPHILS PERCENT AUTO 1 % (0-2); EOSINOPHILS ABSOLUTE AUTO 0.02 K/mm3 (0.00-0.68); EOSINOPHILS PERCENT AUTO 0 % (0-6); Hematocrit 37.3 % (37.0-53.0); IMMATURE GRAN ABSOLUTE AUTO 0.07 K/mm3 (0.00-0.10); IMMATURE GRAN PERCENT AUTO 1 % (0-1); LYMPHOCYTES PERCENT AUTO 23 % (21-46); MONOCYTES ABSOLUTE AUTO 0.24 K/mm3 (0.16-1.47); MONOCYTES PERCENT AUTO 4 % (4-13); Mean Corpuscular HGB 28.3 pg (26.0-34.0); Mean Corpuscular HGB Conc 32.2 g/dL (31.5-36.5); Mean Corpuscular Volume 88 fL (80-100); Mean Platelet Volume 10.5 fL (9.1-12.4); NEUTROPHILS ABSOLUTE AUTO 3.91 K/mm3 (1.96-9.15); NEUTROPHILS PERCENT AUTO 70 % (41-73); Platelet Count 276 K/mm3 (150-400); RDW Coefficient Variation 16.5 % (11.7-14.2); RDW Standard Deviation 52.9 fL (35.1-46.3); Red Blood Cell Count 4.24 M/mm3 (4.30-5.90)
[2023-02-05 11:21] LABS: Albumin/Globulin Ratio 0.4 (0.8-1.8); Bilirubin, Total 0.6 mg/dL (0.1-1.0); Bun/Creatinine Ratio 29.8 (12.0-20.0); Calcium, Blood 8.7 mg/dL (8.5-10.1); Creatinine, Blood 1.14 mg/dL (0.60-1.20); Globulin, Blood 4.7 g/dL (2.2-4.0); Potassium, Blood 5.2 mmol/L (3.5-5.5); Total Protein, Blood 6.7 g/dL (6.4-8.2)
[2023-02-05 15:42] VITALS: BP 87/64
[2023-02-05] MEDS ORDERED: B-COMPLEX WITH1 EAC2 PO (15:49)
--- NOTE | 2023-02-05 18:47 | NUR ---
PCU ADMIT / END OF SHIFT PT BROUGHT TO PCU-03 BY [place] FROM ER @ APPROX 1530. PT A&O X4, WEAK, UNABLE TO STAND. PT SLID OVER FROM [facility] TO PCU BED BY 4 STAFF. PT REPORTS INABILITY TO WALK SINCE YESTERDAY. PT NAUSEOUS. 500 ML NS BOLUS INFUSING UPON ARRIVAL FROM ER. BP SOFT, OTHERWISE VSS. SPO2 > 92% ON 2L NC. PT REPORTS 2L NC HOME USE AT NIGHT. MONITOR SHOWING AFIB, HR 90s-110S. ABD SEVERELY DISTENDED. PT NAUESOUS. GALLBLADDER DRAIN IN PLACE TO R ABD W/ LIQ YELLOW/BROWN OUTPUT. MD COUCH W/ INSTRUCTION TO PLACE NGT TO LIS. NGT PLACED W/ IMMEDIATE RETURN OF LIQUID BROWN OUTPUT & PT EPISODE OF EMESIS. NGT W/ 1300 MLS OUT & APPROX 700 MLS EMESIS. MD COUCH TO UNIT, STATING PT NOT A SURGICAL CANDIDATE. PT NPO. Q6H CBG MONITORING W/ CBG 98 THIS EVENING. MD MAR W/ ORDER TO START D5NS GTT, SEE EMAR.
[2023-02-05 20:27] VITALS: BP 105/79
[2023-02-05 22:23] VITALS: BP 104/67
[2023-02-05 23:00] VITALS: BP 95/57
[2023-02-06] VITALS (7 sets, daily range): BP systolic 86–145; BP diastolic 54–131
[2023-02-06 04:17] LABS: BASOPHILS ABSOLUTE AUTO 0.07 K/mm3 (0.00-0.23); BASOPHILS PERCENT AUTO 1 % (0-2); EOSINOPHILS ABSOLUTE AUTO 0.04 K/mm3 (0.00-0.68); EOSINOPHILS PERCENT AUTO 1 % (0-6); Hematocrit 34.4 % (37.0-53.0); Hemoglobin 10.6 g/dL (13.5-17.5); IMMATURE GRAN ABSOLUTE AUTO 0.04 K/mm3 (0.00-0.10); IMMATURE GRAN PERCENT AUTO 1 % (0-1); LYMPHOCYTES ABSOLUTE AUTO 1.48 K/mm3 (0.84-5.20); LYMPHOCYTES PERCENT AUTO 22 % (21-46); MONOCYTES ABSOLUTE AUTO 0.57 K/mm3 (0.16-1.47); MONOCYTES PERCENT AUTO 9 % (4-13); Mean Corpuscular HGB 28.1 pg (26.0-34.0); Mean Corpuscular HGB Conc 30.8 g/dL (31.5-36.5); Mean Corpuscular Volume 91 fL (80-100); Mean Platelet Volume 10.4 fL (9.1-12.4); NEUTROPHILS ABSOLUTE AUTO 4.51 K/mm3 (1.96-9.15); NEUTROPHILS PERCENT AUTO 67 % (41-73); Platelet Count 294 K/mm3 (150-400); RDW Standard Deviation 56.1 fL (35.1-46.3); Red Blood Cell Count 3.77 M/mm3 (4.30-5.90); White Blood Cell Count 6.71 K/mm3 (4.00-11.30)
--- NOTE | 2023-02-06 04:49 | NUR ---
SHIFT SUMMARY PT A&Ox4, CALLS AND COMMUNICATES NEEDS APPROPRIATELY. BP SOFT AT TIMES, MAP >65, AFIB 90-100's, DENIES CP/PRESSURE. SpO2> 92% 2L VIA NC, DENIES SOB. NG TUBE PATENT, CONNECTED TO LOW INTERMITTENT SUCTION WITH DARK BROWN OUTPUT. CONTINENT OF URINE, USES URINAL IN BED WITH ASSISTANCE. NO BM THIS SHIFT. PT NPO. NO OTHER EVENTS, WILL REPORT TO ONCOMING RN.
[2023-02-06 05:00] LABS: Alanine Aminotransfer (ALT/SGP 25 U/L (12-78); Albumin, Blood 2.1 g/dL (3.4-5.0); Albumin/Globulin Ratio 0.5 (0.8-1.8); Alk Phos 384 U/L (50-136); Aspartate Aminotrans (AST/SGOT 34 U/L (12-37); Bilirubin, Total 0.4 mg/dL (0.1-1.0); Blood Urea Nitrogen 38 mg/dL (8-24); Bun/Creatinine Ratio 21.8 (12.0-20.0); Calcium, Blood 8.6 mg/dL (8.5-10.1); Chloride, Blood 97 mmol/L (98-108); Creatinine, Blood 1.74 mg/dL (0.60-1.20); Glomerular Filtration Rate 41 (60-); Glucose, Blood 131 mg/dL (70-99); Potassium, Blood 3.4 mmol/L (3.5-5.5); Sodium, Blood 145 mmol/L (136-145); Total Protein, Blood 6.1 g/dL (6.4-8.2)
[2023-02-06 05:02] LABS: Anion Gap Unable to Calculate mmol/L (6-16)
[2023-02-06 05:03] LABS: CO2, Blood >45 mmol/L (21-32)
--- NOTE | 2023-02-06 08:00 | NUR ---
PT ATTEMPTED TO GET OUT OF BED WITH 2 STAFF ASSIST TO RECLINER. PT TOO WEAK TO STAND. ATTEMPTED TO SIT ON THE SIDE OF THE BED FOR A FEW MINUTES. PT COMPLAINS OF DIZZINESS AND WEAKNESS. PT ASSISTED BACK TO BED. PT EXPERIENCED NAUSEA WHEN LAYING FLAT. HOB ELEVATED TO RELIEVE DISCOMFORT.
[2023-02-06 13:21] LABS: International Normalized Ratio 1.09; Prothrombin Time Results 11.4 Sec (9.7-11.5)
[2023-02-06 15:57] LABS: Automated BF RBC Count 0.013 M/mm3 (0-0); Automated BF WBC Count 0.984 K/mm3 (0-999)
[2023-02-06 16:04] LABS: Body Fluid WBC Count 984 /mm3 (0-999); RBC Count, Body Fluid 13000 /mm3 (0-0)
[2023-02-06 16:10] LABS: Lactate Dehydrogenase, Body Fl 95 U/L; Protein, Body Fluid 3.6 g/dL
--- NOTE | 2023-02-06 17:44 | NUR ---
SHIFT SUMMARY PT IS A&OX4 AND MAKES HIS NEEDS KNOWN. HE WAS UNABLE TO TRANSFER TO THE CHAIR WITH TWO STAFF ASIST DUE TO WEAKNESS. PT HAD A BEDBATH AND WAS COOPERATIVE WITH CARE. HE HAS COMPLAINED OF PAIN ON AND OFF AND MEDICATED PER MAR. NG TUBE ON LIS DRAINING DARK BROWN FLUID. R ARM IV PATENT AND BANDAGED REPLACED. PT HAD THORENCENTISIS TODAY AND CLAIMS HE CAN BREATH DEEPER AFTER. BP'S HAVE BEEN SOFT, NOTIFIED AND MAR UPDATED. GI DENIED SURGERY TODAY AND PLANS TOMORROW-NPO TO CONTINUE WITH THE EXCEPTION OF ICE WATER. SCD'D ON BILATERAL LE.
[2023-02-06 18:13] LABS: Appearance, Body Fluid Cloudy (Clear); Color, Body Fluid Yellow (None-Yellow); Total Cell Count, Body Fluid 100
[2023-02-07 03:59] VITALS: BP 104/58
--- NOTE | 2023-02-07 04:23 | NUR ---
SHIFT SUMMARY PT A&Ox4, CALLS AND COMMUNICATES NEEDS APPROPRIATELY. BP SOFT AT TIMES, MAP >65, AFIB 90-100's, DENIES CP/PRESSURE. SpO2> 92% 2L VIA NC, DENIES SOB. NG TUBE PATENT, CONNECTED TO LOW INTERMITTENT SUCTION WITH BROWN OUTPUT. CONTINENT OF URINE, NO BM THIS SHIFT. PT NPO EXCEPT ICE CHIPS AND SMALL DRINKS OF WATER. NO OTHER EVENTS, WILL REPORT TO ONCOMING RN.
[2023-02-07 04:53] LABS: BASOPHILS ABSOLUTE AUTO 0.08 K/mm3 (0.00-0.23); BASOPHILS PERCENT AUTO 1 % (0-2); EOSINOPHILS ABSOLUTE AUTO 0.17 K/mm3 (0.00-0.68); EOSINOPHILS PERCENT AUTO 2 % (0-6); Hematocrit 30.8 % (37.0-53.0); Hemoglobin 9.6 g/dL (13.5-17.5); IMMATURE GRAN ABSOLUTE AUTO 0.04 K/mm3 (0.00-0.10); IMMATURE GRAN PERCENT AUTO 1 % (0-1); LYMPHOCYTES ABSOLUTE AUTO 1.71 K/mm3 (0.84-5.20); LYMPHOCYTES PERCENT AUTO 24 % (21-46); MONOCYTES ABSOLUTE AUTO 0.57 K/mm3 (0.16-1.47); MONOCYTES PERCENT AUTO 8 % (4-13); Mean Corpuscular HGB 28.2 pg (26.0-34.0); Mean Corpuscular HGB Conc 31.2 g/dL (31.5-36.5); Mean Corpuscular Volume 91 fL (80-100); NEUTROPHILS ABSOLUTE AUTO 4.45 K/mm3 (1.96-9.15); NEUTROPHILS PERCENT AUTO 63 % (41-73); Platelet Count 253 K/mm3 (150-400); RDW Coefficient Variation 17.1 % (11.7-14.2); RDW Standard Deviation 56.3 fL (35.1-46.3); White Blood Cell Count 7.02 K/mm3 (4.00-11.30)
[2023-02-07 05:14] LABS: Bun/Creatinine Ratio 16.5 (12.0-20.0); Calcium, Blood 7.8 mg/dL (8.5-10.1); Creatinine, Blood 2.37 mg/dL (0.60-1.20)
[2023-02-07 07:24] VITALS: BP 93/63
[2023-02-07 08:32] LABS: Thyroid Stimulating Hormone 7.59 uIU/mL (0.360-4.800); Uric Acid, Blood 7.8 mg/dL (3.5-7.2)
[2023-02-07 15:27] LABS: Magnesium, Blood 2.4 mg/dL (1.6-2.4)
[2023-02-07 15:28] LABS: Albumin, Blood 1.9 g/dL (3.4-5.0); Anion Gap 3 mmol/L (6-16); Blood Urea Nitrogen 37 mg/dL (8-24); Bun/Creatinine Ratio 15.4 (12.0-20.0); CO2, Blood 41 mmol/L (21-32); Calcium, Blood 7.8 mg/dL (8.5-10.1); Chloride, Blood 101 mmol/L (98-108); Creatinine, Blood 2.41 mg/dL (0.60-1.20); Glomerular Filtration Rate 27 (60-); Glucose, Blood 160 mg/dL (70-99); Phosphorus, Blood 3.7 mg/dL (2.5-4.9); Potassium, Blood 3.1 mmol/L (3.5-5.5); Sodium, Blood 145 mmol/L (136-145)
[2023-02-07 17:15] VITALS: BP 89/71
[2023-02-07 18:31] LABS: Source, Urine Clean Catch
--- NOTE | 2023-02-07 18:33 | NUR ---
SHIFT SUMMARY PT UNABLE TO URINIATE. STRAIGHT CATH'D AT 6PM WITH AN OUTPUT OF 600ML. PT TOLERATED WELL. NG TUBE DC'D WITH NO N/V TO FOLLOW. DIET CHANGED TO CLEAR LIQUID PER MD. PT TURNED Q2 TO PREVENT FURTHER SKIN BREAKDOWN. BP SOFT, MEDICATED PER JUL. PT REPORTS NO PAIN OR NEEDS AT THIS TIME.
[2023-02-07 18:50] LABS: Appearance, Urine Clear (Clear); Bilirubin, Urine Neg (Neg); Blood, Urine 1+ (Neg); Color, Urine Yellow (P-Yellow); Glucose Qualitative, Urine Neg (Neg); Ketones, Urine Neg (Neg); Leukocyte Esterase, Urine Neg (Neg); Nitrite, Urine Neg (Neg); Protein, Urine 2+ (Neg); Urobilinogen, Urine NORM (Normal)
[2023-02-07 19:45] LABS: Bacteria Rare /hpf; Hyaline Casts 0-2 /lpf (0-2); Squamous Epithelial Cells Not Seen /hpf (Few); White Blood Cells, Urine 0-2 /hpf (0-5)
[2023-02-07 20:02] VITALS: BP 105/66
[2023-02-08 00:08] VITALS: BP 97/71
[2023-02-08 03:10] VITALS: BP 108/71
[2023-02-08 03:37] LABS: Hematocrit 31.5 % (37.0-53.0); Hemoglobin 9.9 g/dL (13.5-17.5)
[2023-02-08 04:05] LABS: Albumin, Blood 1.9 g/dL (3.4-5.0); Anion Gap 5 mmol/L (6-16); Blood Urea Nitrogen 35 mg/dL (8-24); Bun/Creatinine Ratio 16.2 (12.0-20.0); CO2, Blood 39 mmol/L (21-32); Calcium, Blood 7.8 mg/dL (8.5-10.1); Chloride, Blood 99 mmol/L (98-108); Creatinine, Blood 2.16 mg/dL (0.60-1.20); Glomerular Filtration Rate 31 (60-); Glucose, Blood 147 mg/dL (70-99); Magnesium, Blood 2.2 mg/dL (1.6-2.4); PSA, %Free 38.9 %; PSA, Free 0.168 ng/mL; Phosphorus, Blood 3.1 mg/dL (2.5-4.9); Prostate Specific Antigen 0.432 ng/mL (0.000-4.000); Sodium, Blood 143 mmol/L (136-145); Triglycerides 101 mg/dL (30-160)
--- NOTE | 2023-02-08 06:44 | NUR ---
SHIFT SUMMARY PATIENT ALERT AND ORIENTED X4. MEDICATED PER EMAR FOR PAIN. PATIENT WAS UNABLE TO URINATE SO A BACH CATHETER WAS INSERTED. SPO2 95% ON 2 LITERS O2 VIA NC, HAD NO COMPLAINTS OF SHORTNESS OF BREATH. VITAL SIGNS STABLE, DENIES CHEST PAIN/PRESSURE. BILIARY DRAIN PATENT AND DRAINING TO GRAVITY. NO OTHER ISSUES NOTED OVERNIGHT. WILL CONTINUE TO MONITOR. CALL LIGHT WITHIN REACH.
[2023-02-08 08:00] VITALS: BP 99/59
[2023-02-08 15:33] VITALS: BP 103/64
--- NOTE | 2023-02-08 16:53 | NUR ---
TRANSFER: PT TRANSFERRED TO MED 35 VIA BED. ALL BELONINGS WITH PT. REPORT GIVEN TO CAT RISA
--- NOTE | 2023-02-08 17:08 | NUR ---
RECEIVED REPORT FROM PCU NURSE. PT TRANSFERED IN BED TO ROOM. PT ORIENTED TO ROOM AND STAFF. NO COMPLAINTS OF NAUSEA/VOMITING OR PAIN. IV INFUSING D51/2NS AT 75ML/HR. PT LEFT IN A STATE OF SAFETY WITH BED LOCKED AND IN LOWEST POSITION AND CALL LIGHT WITHIN REACH.
--- NOTE | 2023-02-08 17:52 | NUR ---
SHIFT SUMMARY PT ARRIVED BEFORE DINNER AND TOLERATED ORIENTATION ON TO THE UNIT WELL. VSS, B/P TRENDING LOW ASYMPTOMATICALLY. PT ON 2L OF O2 VIA N/C AND MAINTAINING O2 SATS IN THE 90S. NO ACUTE EVENTS AT THIS TIME. PT LEFT IN A POSITION OF SAFETY WITH BED LOCKED AND IN LOWEST POSITION, AND CALL LIGHT WITHIN REACH.
[2023-02-08 20:13] VITALS: BP 158/141
--- NOTE | 2023-02-09 04:41 | NUR ---
SHIFT SUMMARY REPORT RECEIVED AND VERIFIED PT IN A DEEP SLEEP ASSESSMENT DONE VSS WILL LET PT SLEEP LONG NEEDED. PT AWAKE ALERT VERY TALKATIVE FEELS MUCH BETTER AND WAITING FOR SON TO ARRIVE. SON ARRIVED TO SEE PT, STAYED FOR AN HOUR THEN LEFT, ASKED IF i COULD CHECK BLOOD SUGAR BECAUSE PT CONT GLUCOSE MONITOR SHOWED OVER 300. FROM OUT MONITOR FSBS WAS MID 200, PT IV FLUID WAS DEXTROSE SO NEW ORDER RECEIVED FOR LR. PT WATCHING TV BLOOD SUGAR WNL NOW NOT C/O PAIN NO DISTRESS WILL CONT MONITORING.
[2023-02-09 05:12] LABS: Hematocrit 28.8 % (37.0-53.0); Hemoglobin 9.1 g/dL (13.5-17.5)
[2023-02-09 05:14] VITALS: BP 94/53
[2023-02-09 05:30] LABS: Albumin, Blood 1.6 g/dL (3.4-5.0); Anion Gap 3 mmol/L (6-16); Blood Urea Nitrogen 34 mg/dL (8-24); Bun/Creatinine Ratio 17.9 (12.0-20.0); CO2, Blood 36 mmol/L (21-32); Calcium, Blood 7.4 mg/dL (8.5-10.1); Chloride, Blood 95 mmol/L (98-108); Glomerular Filtration Rate 37 (60-); Glucose, Blood 136 mg/dL (70-99); Phosphorus, Blood 3.2 mg/dL (2.5-4.9); Potassium, Blood 3.3 mmol/L (3.5-5.5); Sodium, Blood 134 mmol/L (136-145)
[2023-02-09 07:30] VITALS: BP 94/63
[2023-02-09 16:23] VITALS: BP 101/57
--- NOTE | 2023-02-09 17:24 | NUR ---
SHIFT SUMMARY PT AOX4, MAKES HIS NEEDS KNOWN. CURRENTLY ON BEDREST. BACH IN PLACE AND DRAINING WISAM URINE. CATH CARE COMPLETED ALONG WITH A BED BATH. PT C/O PAIN AND MEDICATED PER THE EMAR. NO ACUTE CHANGES THIS SHIFT. CALL LIGHT WITHIN REACH, BED IN THE LOWEST POSITION. WILL REPORT TO ONCOMING NURSE.
[2023-02-09 20:08] VITALS: BP 98/60
[2023-02-10 04:59] LABS: Hematocrit 30.2 % (37.0-53.0); Hemoglobin 9.3 g/dL (13.5-17.5)
[2023-02-10 05:08] VITALS: BP 107/64
[2023-02-10 05:23] LABS: Albumin, Blood 2.1 g/dL (3.4-5.0); Anion Gap 5 mmol/L (6-16); Blood Urea Nitrogen 33 mg/dL (8-24); Bun/Creatinine Ratio 19.4 (12.0-20.0); CO2, Blood 33 mmol/L (21-32); Calcium, Blood 8.1 mg/dL (8.5-10.1); Chloride, Blood 97 mmol/L (98-108); Glomerular Filtration Rate 42 (60-); Glucose, Blood 178 mg/dL (70-99); Magnesium, Blood 2.1 mg/dL (1.6-2.4); Phosphorus, Blood 3.3 mg/dL (2.5-4.9); Potassium, Blood 3.5 mmol/L (3.5-5.5); Sodium, Blood 135 mmol/L (136-145)
--- NOTE | 2023-02-10 06:41 | NUR ---
SHIFT SUMMARY PRN FENTANYL AND TYLENOL GIVEN X2 THIS SHIFT. STATES FENTANYL ONLY HELPS FOR A FEW MINUTES. NO DRAINAGE IN GALLBLADDER DRAIN. FIRE SAFETY REVIEWED, NO IGNITION SOURCES.
[2023-02-10 07:51] VITALS: BP 98/69
[2023-02-10 16:17] VITALS: BP 99/64
--- NOTE | 2023-02-10 17:47 | NUR ---
SHIFT SUMMARY AOX4, BEDREST. NPO TONIGHT AT MIDNIGHT FOR A GI PROCEDURE TOMORROW. HE IS TALKATIVE AND SET IN HIS WAYS. HE HAD A VISITOR TODAY. NO ACUTE CHANGES, HE HAS BEEN RESTING ON AND OFF THROUGHOUT THE DAY. CALL LIGHT WITHIN REACH, BED IN THE LOWEST POSITION.
--- NOTE | 2023-02-10 19:23 | NUR ---
RECEIVED REPORT FROM DAY SHIFT RN. PT RESTING QUIETLY. BED ALARM ON. CALL LT IN REACH.
--- NOTE | 2023-02-10 20:46 | NUR ---
PT'S STEPSON IN VISITING.
[2023-02-10 20:53] VITALS: BP 103/72
--- NOTE | 2023-02-10 23:53 | NUR ---
PT RESTING QUIETLY. BED ALARM ON. CALL LT IN REACH.
--- NOTE | 2023-02-11 02:20 | NUR ---
NO NEEDS AT THIS TIME. PT TALKING TO SNOW BLOWER. CALL LT IN REACH.
[2023-02-11 03:21] VITALS: BP 96/57
[2023-02-11 06:11] LABS: Hematocrit 31.5 % (37.0-53.0)
--- NOTE | 2023-02-11 06:18 | NUR ---
SHIFT SUMMARY: MEDICATED PT FOR GOUT HAND AND FOOT PAIN X 2, PT STATES THE PAIN MEDICATION TAKES THE EDGE OFF THE PAIN. A/O X 4. ABLE TO STATE NEEDS APPROPRIATELY. TAKES MEDS WHOLE WITH WATER WITHOUT DIFFICULTY. BACH FOR RETENTION DRAINING WISAM COLORED URINE, PATENT. BILIARY DRAIN PATENT AND DRAINING DARK BROWN FLUID. NO COMPLAINTS OF NAUSEA OR BELLY PAIN. NO SOB OR CHEST PAIN. ON 3L OXYGEN, WHICH IS HIS BASELINE. PT HAS BEEN NPO SINCE MIDNIGHT FOR AM PROCEDURE. NO ACUTE CHANGES. PT COOPERATIVE WITH CARE AND PLEASANT. WILL CONTINUE TO PROVIDE CARE UNTIL SHIFT REPORT TO ONCOMING NURSE.
[2023-02-11 06:34] LABS: Anion Gap 5 mmol/L (6-16); Blood Urea Nitrogen 30 mg/dL (8-24); Bun/Creatinine Ratio 22.2 (12.0-20.0); CO2, Blood 31 mmol/L (21-32); Calcium, Blood 8.4 mg/dL (8.5-10.1); Chloride, Blood 99 mmol/L (98-108); Creatinine, Blood 1.35 mg/dL (0.60-1.20); Glomerular Filtration Rate 55 (60-); Glucose, Blood 166 mg/dL (70-99); Phosphorus, Blood 2.4 mg/dL (2.5-4.9); Potassium, Blood 4.1 mmol/L (3.5-5.5); Sodium, Blood 135 mmol/L (136-145)
[2023-02-11 07:10] VITALS: BP 93/53
[2023-02-11 14:56] VITALS: BP 95/73
--- NOTE | 2023-02-11 17:07 | NUR ---
SHIFT SUMMARY PT AOX4, ON BEDREST. NPO AFTER MIDNIGHT TONIGHT FOR A GI SCOPE IN THE AM AT 0730. PT MEDICATED FOR PAIN PER THE EMAR. SON AT THE BS TODAY, SPOKE WITH THE DOCTOR. NO OTHER ACUTE CHANGES. CALL LIGHT WITHIN REACH, BED IN THE LOWEST POSITION. WILL REPORT TO ONCOMING NURSE.
[2023-02-11 20:33] VITALS: BP 94/67
[2023-02-12] VITALS (7 sets, daily range): BP systolic 86–112; BP diastolic 56–84
[2023-02-12 06:07] LABS: Hematocrit 32.3 % (37.0-53.0); Hemoglobin 10.2 g/dL (13.5-17.5)
[2023-02-12 06:16] LABS: Anion Gap 4 mmol/L (6-16); Blood Urea Nitrogen 28 mg/dL (8-24); Bun/Creatinine Ratio 21.4 (12.0-20.0); CO2, Blood 31 mmol/L (21-32); Calcium, Blood 8.2 mg/dL (8.5-10.1); Chloride, Blood 101 mmol/L (98-108); Creatinine, Blood 1.31 mg/dL (0.60-1.20); Glomerular Filtration Rate 57 (60-); Glucose, Blood 173 mg/dL (70-99); Phosphorus, Blood 2.7 mg/dL (2.5-4.9); Sodium, Blood 136 mmol/L (136-145)
--- NOTE | 2023-02-12 07:49 | NUR ---
02/12/23 [address] CHERRY; SEE ANESTHESIA RECORDS.
--- NOTE | 2023-02-12 19:08 | NUR ---
SHIFT SUMMARY: PT A&O X4. CAN BE IRRITABLE BUT MOSTLY PLEASANT AND COOPERATIVE WITH CARE PT C/O PAIN SEVERAL TIMES THIS SHIFT DUE TO GOUT AND IS WORRIED ABOUT ALLOPURINOL ADMINISTRATION. AM/PM GOUT MED IN EMAR. PT RECEIVED FENTANYL TWICE THIS SHIFT FOR A 10/10 PAIN IN HANDS AND FEET. PT HAD UPPER ENDOSCOPY THIS SHIFT BUT COULD NOT BE COMPLETED DUE TO INABILITY TO MAINTAIN 02 SATURATION. PT ARRIVED WITH AMBU BAG @10L. PT CURRENTLY ON 5L MAINTAINING SATURATIONS. PT NPO AFTER MIDNIGHT DUE TO POSSIBLE PROCEDURE IN AM. PT HAD CHEST X-RAY THIS EVENING. RESULTS IN CHART. CALL LIGHT IN REACH. BED IN LOWEST POSITION. REPORT GIVEN TO ONCOMING RN.
[2023-02-13 02:54] VITALS: BP 112/72
[2023-02-13 05:31] LABS: Hematocrit 31.1 % (37.0-53.0); Hemoglobin 9.5 g/dL (13.5-17.5)
--- NOTE | 2023-02-13 05:42 | NUR ---
SHIFT SUMMARY PATIENT A/OX4, PLEASANT AFFECT, TALKATIVE. C/O ONGOING CHRONIC PAIN R/T GOUT, STATES 03/05 EACH TIME. MEDICATED X2 THIS SHIFT. AT APPROX. 1AM, PATIENT C/O PAIN TO SUPPORT SERVICE TECH, WHEN THIS RN WENT TO ACCESS PATIENT, HE WAS SNORING, APPEARED TO BE ASLEEP, IN NO ACUTE DISTRESS. IS NPO FOR PROCEDURE, PATIENT AWARE, COOPERATIVE. ASLEEP OFF AND ON THROUGHOUT NIGHT. BILIARY DRAIN IN PLACE, PATENT, DRAINING BILE. BACH IN PLACE, DRAINING CLEAR WISAM URIN. NO ACUTE CHANGES NOTED OVERNIGHT. BED IN LOWEST POSITION, CALL LIGHT SONG GONSALES.
[2023-02-13 05:46] LABS: Magnesium, Blood 1.9 mg/dL (1.6-2.4)
[2023-02-13 06:53] LABS: Blood Urea Nitrogen 28 mg/dL (8-24); Bun/Creatinine Ratio 21.9 (12.0-20.0); CO2, Blood 31 mmol/L (21-32); Calcium, Blood 8.6 mg/dL (8.5-10.1); Creatinine, Blood 1.28 mg/dL (0.60-1.20); Glomerular Filtration Rate 59 (60-); Glucose, Blood 170 mg/dL (70-99); Phosphorus, Blood 2.8 mg/dL (2.5-4.9)
[2023-02-13 07:45] VITALS: BP 96/63
[2023-02-13 14:04] LABS: Anion Gap 4 mmol/L (6-16); Chloride, Blood 102 mmol/L (98-108); Potassium, Blood 4.2 mmol/L (3.5-5.5); Sodium, Blood 137 mmol/L (136-145)
[2023-02-13 16:27] VITALS: BP 90/58
--- NOTE | 2023-02-13 17:18 | NUR ---
DAYSHIFT SUMMARY Patient alert & oriented x3. Patient NPO this morning. Ultrasound of lungs showed small collection of fluid, no enough to drain. Chest CT showed mucus, MD ordered mucolytic and waiting to hear from surgery about EGD. Gallbladder drain in place, draining to suction. Masterson cath in place draining to gravity. Patient requesting IV Fentynal Q2H for gout pain, reported pain of 9-10, stating the gout pain gets out of control when it builds up. Switched to [place] to manage severe pain. Vitals stable. Will continue plan of care.
[2023-02-13 19:32] VITALS: BP 97/63
--- NOTE | 2023-02-14 04:01 | NUR ---
SHIFT SUMMARY PATIENT A/OX4, PLEASANT AFFECT, INTERACTIVE. C/O ONGOING CHRONIC PAIN R/T GOUT, STATES 03/05. RECEIVED PRN MEDICATION PER JUL, TOLERATED WELL. PATIENT WAS OBSERVED ASLEEP IN BED AT 2300 WITHOUT FURTHER C/O PAIN. BILIARY DRAIN IN PLACE, PATENT, DRAINING BILE. BACH IN PLACE, DRAINING CLEAR WISAM URINE. NO ACUTE CHANGES NOTED OVERNIGHT. BED LOCKED AND IN LOWEST POSITION, CALL LIGHT WITHIN REACH.
[2023-02-14 05:30] LABS: Hemoglobin 9.8 g/dL (13.5-17.5)
[2023-02-14 05:44] VITALS: BP 110/82
[2023-02-14 06:02] LABS: Albumin, Blood 2.1 g/dL (3.4-5.0); Anion Gap 3 mmol/L (6-16); Blood Urea Nitrogen 31 mg/dL (8-24); Bun/Creatinine Ratio 23.3 (12.0-20.0); CO2, Blood 31 mmol/L (21-32); Calcium, Blood 8.6 mg/dL (8.5-10.1); Chloride, Blood 101 mmol/L (98-108); Creatinine, Blood 1.33 mg/dL (0.60-1.20); Glomerular Filtration Rate 56 (60-); Glucose, Blood 191 mg/dL (70-99); Magnesium, Blood 1.9 mg/dL (1.6-2.4); Phosphorus, Blood 2.5 mg/dL (2.5-4.9); Sodium, Blood 135 mmol/L (136-145)
[2023-02-14 07:18] VITALS: BP 116/77
[2023-02-14 12:12] VITALS: BP 84/66
[2023-02-14 16:28] VITALS: BP 108/72
--- NOTE | 2023-02-14 17:31 | NUR ---
SHIFT SUMMARY: PT A&O X3-4 THIS SHIFT. PT OCCASIONALLY GETTING DAY/NIGHT CONFUSED. PT C/O 3/10 PAIN THIS AM AND 9/10 PAIN THIS EVENING. PAIN MEDICATIONS PROVIDED PER EMAR. PT C/O CONSTIPATION DESPITE BM CHARTED DAY PRIOR. BOWEL MEDICATIONS PROVIDED PER EMAR. PT SPOKE W/ DR. MCGINNIS THIS SHIFT REGARDING ABNORMAL CHEST IMAGING. CONSULT NOTE IN ELECTRONIC CHART. BILIARY DRAIN IN PLACE, PATENT, DRAINING BILE. BACH IN PLACE DRAINING YELLOW URINE. CALL LIGHT IN REACH. BED IN LOWEST POSITION. WILL CONTINUE TO MONITOR.
[2023-02-14 19:31] VITALS: BP 97/64
[2023-02-15 02:46] VITALS: BP 109/76
--- NOTE | 2023-02-15 04:24 | NUR ---
SHIFT SUMMARY PATIENT A/Ox4, PLEASANT AFFECT, TALKATIVE. DID NOT REQUEST PAIN MEDICATION THIS SHIFT. APPEARS IN NO ACUTE DISTRESS. ASLEEP THROUGHOUT MOST OF SHIFT. BILIARY DRAIN IN PLACE, PATENT, DRAINING BILE. BACH IN PLACE, DRAINING CLEAR WISAM URINE. NO ACUTE CHANGES NOTED OVERNIGHT. BED LOCKED AND IN LOWEST POSITION, CALL LIGHT WITHIN REACH.
[2023-02-15 06:35] LABS: Hematocrit 29.4 % (37.0-53.0); Hemoglobin 9.1 g/dL (13.5-17.5)
[2023-02-15 06:52] LABS: Anion Gap 4 mmol/L (6-16); Blood Urea Nitrogen 30 mg/dL (8-24); Bun/Creatinine Ratio 24.4 (12.0-20.0); CO2, Blood 31 mmol/L (21-32); Calcium, Blood 8.4 mg/dL (8.5-10.1); Chloride, Blood 101 mmol/L (98-108); Creatinine, Blood 1.23 mg/dL (0.60-1.20); Glomerular Filtration Rate 62 (60-); Glucose, Blood 175 mg/dL (70-99); Magnesium, Blood 1.9 mg/dL (1.6-2.4); Phosphorus, Blood 3.1 mg/dL (2.5-4.9); Potassium, Blood 4.8 mmol/L (3.5-5.5); Sodium, Blood 136 mmol/L (136-145); Triglycerides 96 mg/dL (30-160)
[2023-02-15 07:53] VITALS: BP 99/65
[2023-02-15 15:22] VITALS: BP 93/63
[2023-02-15 15:24] VITALS: BP 102/65
[2023-02-15 18:28] VITALS: BP 116/70
[2023-02-15 18:28] LABS: Automated BF RBC Count 0.005 M/mm3 (0-0); Automated BF WBC Count 1.124 K/mm3 (0-999); Body Fluid WBC Count 1124 /mm3 (0-999); RBC Count, Body Fluid 5000 /mm3 (0-0)
[2023-02-15 18:32] LABS: Appearance, Body Fluid Hazy (Clear); Color, Body Fluid Yellow (None-Yellow)
--- NOTE | 2023-02-15 18:35 | NUR ---
SHIFT SUMMARY: PT A&O X4. PT FEELS WORSE TODAY THAN YESTERDAY. NAUSEA MEDS GIVEN DUE TO VOMITING. PT RECEIVED THORACENTESIS THIS EVENING, 1L REMOVED. PT FEELS BETTER AND STATES ABLE TO BREATHE BETTER WITH FLUID REMOVAL. TO REFUSED BREAKFAST AND DINNER. SON ARRIVED TO ROOM WITH CONCERNS OF BILIARY TUBING NOT GETTING PROPER CARE AND FLUSHES. DR. MORA STATED SHE WOULD CALL SON FOR UPDATE. CALL LIGHT IN REACH. BED IN LOWEST POSITION. WILL CONTINUE TO MONITOR.
[2023-02-15 18:58] LABS: Albumin, Body Fluid 1.6 g/dL; Glucose, Body Fluid 194 mg/dL; Lactate Dehydrogenase, Body Fl 66 U/L; Protein, Body Fluid 3.1 g/dL; Triglycerides, Body Fluid 18 mg/dL
[2023-02-15 19:38] LABS: Total Cell Count, Body Fluid 100
[2023-02-15 20:33] VITALS: BP 106/73
[2023-02-16 05:44] LABS: BASOPHILS ABSOLUTE AUTO 0.03 K/mm3 (0.00-0.23); BASOPHILS PERCENT AUTO 1 % (0-2); EOSINOPHILS ABSOLUTE AUTO 0.06 K/mm3 (0.00-0.68); EOSINOPHILS PERCENT AUTO 1 % (0-6); Hematocrit 30.8 % (37.0-53.0); Hemoglobin 9.7 g/dL (13.5-17.5); IMMATURE GRAN ABSOLUTE AUTO 0.05 K/mm3 (0.00-0.10); IMMATURE GRAN PERCENT AUTO 1 % (0-1); LYMPHOCYTES ABSOLUTE AUTO 1.02 K/mm3 (0.84-5.20); LYMPHOCYTES PERCENT AUTO 18 % (21-46); MONOCYTES ABSOLUTE AUTO 0.37 K/mm3 (0.16-1.47); MONOCYTES PERCENT AUTO 6 % (4-13); Mean Corpuscular HGB 28.4 pg (26.0-34.0); Mean Corpuscular HGB Conc 31.5 g/dL (31.5-36.5); Mean Corpuscular Volume 90 fL (80-100); Mean Platelet Volume 11.1 fL (9.1-12.4); NEUTROPHILS ABSOLUTE AUTO 4.31 K/mm3 (1.96-9.15); NEUTROPHILS PERCENT AUTO 74 % (41-73); Platelet Count 205 K/mm3 (150-400); RDW Coefficient Variation 16.4 % (11.7-14.2); RDW Standard Deviation 53.1 fL (35.1-46.3); Red Blood Cell Count 3.42 M/mm3 (4.30-5.90); White Blood Cell Count 5.84 K/mm3 (4.00-11.30)
--- NOTE | 2023-02-16 06:03 | NUR ---
SHIFT SUMMARY PATIENT A/Ox4, WITHDRAWN, LESS TALKATIVE. PAIN MANAGED PER MAR. APPEARS IN NO ACUTE DISTRESS. NOTIFIED PROVIDER OF MINIMAL BILIARY DRAIN OUTPUT, RECEIVED NEW ORDER TO FLUSH W/5mL NS Q SHIFT, TOLERATED WELL, DENIES FEELING PAIN NOR PRESSURE TO LOCAL AREA, CONTINUES TO C/O GOUT PAIN IN JOINTS. BACH IN PLACE, DRAINING CLEAR WISAM URINE. BED LOCKED AND IN LOWEST POSITION, CALL LIGHT WITHIN REACH.
[2023-02-16 06:16] LABS: Albumin, Blood 2.2 g/dL (3.4-5.0); Albumin/Globulin Ratio 0.5 (0.8-1.8); Bilirubin, Direct 0.2 mg/dL (0.0-0.3); Bilirubin, Indirect 0.5 mg/dL (0.1-0.7); Bilirubin, Total 0.7 mg/dL (0.1-1.0); Bun/Creatinine Ratio 23.8 (12.0-20.0); Creatinine, Blood 1.22 mg/dL (0.60-1.20); Globulin, Blood 4.1 g/dL (2.2-4.0); Magnesium, Blood 1.9 mg/dL (1.6-2.4); Phosphorus, Blood 3.2 mg/dL (2.5-4.9); Potassium, Blood 4.2 mmol/L (3.5-5.5); Total Protein, Blood 6.3 g/dL (6.4-8.2)
[2023-02-16 06:38] LABS: Calcium, Blood 8.9 mg/dL (8.5-10.1)
[2023-02-16 07:37] VITALS: BP 101/60
[2023-02-16 12:08] VITALS: BP 106/69
[2023-02-16 15:18] VITALS: BP 107/63
--- NOTE | 2023-02-16 19:16 | NUR ---
SHIFT SUMMARY PT NAUSEOUS AT START OF SHIFT AND HAD SEVERAL EPISODES OF VOMITTING. DR MORA NOTIFIED AND ORDER GIVEN FOR NG PLACMENT. 1000MLS WHERE SUCTIONED IN SHORT AMOUNT OF TIME AND NEW CANISTER WAS PLACED. PT VERBALIZED RELIEF AND WAS ABLE TO REST FOR A COUPLE HOURS. PT DOES HAVE CHRONIC PAIN AND WAS MEDICATED PER EMAR. BP'S REMAIN SOFT. REPORT GIVEN TO ONCOMING NURSE.
[2023-02-16 20:33] VITALS: BP 110/64
--- NOTE | 2023-02-17 01:57 | NUR ---
PT A&OX4 CONTINUES TO EXPRESS PN AND NAUSEA. BILARY DRAIN. NG IN PLACE DRAINING BROWN BILE. REPOSITIONING WITH PASSIVE PAIN. BED LOWERED CALL THORPE IN REACH WILL CONTINUE TO MONITOR.
--- NOTE | 2023-02-17 02:42 | NUR ---
PT IS A&OX4 REPORTS PAIN INTOLERABLE TO HANDS AND FEET PRNS GIVEN PER EMAR REDUCED PAIN FROM 10/10 TO 5/10. BILARY DRAIN IN PLACE. STOPPED NG TO SUCTION FOR ORAL MEDICATIONS W SMALL SIP WATER OTHERWISE ICE CHIPS AND NPO. NG TUBE DRAIN 1200ML BROWN BILE. PT DENIES CP AND SOB AT THIS TIME. BED LOWERED CALL THORPE WITHIN REACH WILL CONTINUE TO MONITOR.
[2023-02-17 04:55] VITALS: BP 111/77
[2023-02-17 05:13] LABS: Hematocrit 31.8 % (37.0-53.0); Hemoglobin 9.8 g/dL (13.5-17.5); Mean Corpuscular HGB 27.9 pg (26.0-34.0); Mean Corpuscular HGB Conc 30.8 g/dL (31.5-36.5); Mean Corpuscular Volume 91 fL (80-100); Mean Platelet Volume 10.7 fL (9.1-12.4); Platelet Count 218 K/mm3 (150-400); RDW Coefficient Variation 16.4 % (11.7-14.2); RDW Standard Deviation 54.4 fL (35.1-46.3); Red Blood Cell Count 3.51 M/mm3 (4.30-5.90); White Blood Cell Count 5.58 K/mm3 (4.00-11.30)
[2023-02-17 05:37] LABS: Albumin, Blood 2.1 g/dL (3.4-5.0); Anion Gap 3 mmol/L (6-16); Blood Urea Nitrogen 26 mg/dL (8-24); Bun/Creatinine Ratio 21.3 (12.0-20.0); CO2, Blood 36 mmol/L (21-32); Calcium, Blood 8.7 mg/dL (8.5-10.1); Chloride, Blood 102 mmol/L (98-108); Creatinine, Blood 1.22 mg/dL (0.60-1.20); Glomerular Filtration Rate 62 (60-); Glucose, Blood 126 mg/dL (70-99); Phosphorus, Blood 2.9 mg/dL (2.5-4.9); Potassium, Blood 3.7 mmol/L (3.5-5.5); Sodium, Blood 141 mmol/L (136-145)
[2023-02-17 07:59] VITALS: BP 117/76
[2023-02-17 13:55] VITALS: BP 102/60
[2023-02-17 16:44] VITALS: BP 108/54
--- NOTE | 2023-02-17 19:41 | NUR ---
SHIFT SUMMARY PT A&OX4. NO ACUTE CHANGES. PT C/O CONSTANT PAIN IN LEGS AND FEET. MEDICATED PER EMAR WITH LITTLE AFFECT. PT AND DR SPOKE ABOUT DIFFERENT MEDICATION FOR PAIN MANAGMENT TODAY BUT NO NEW ORDERS GIVEN. NO EPISODES OF VOMITTING TODAY AND PT STATED FEELING LESS NAUSEOUS. ORDERS GIVEN FOR DIETITION CONSULT FOR CLINIMIX WITH SODIUM. BILIARY DRAIN PUTTING OUT VERY MINIMAL OUTPUT. BP'S STILL REMAIN SOFT. BED IN LOWEST POSITION AND CALL LIGHT IN REACH. REPORT GIVEN TO ONCOMING NURSE.
[2023-02-17 21:57] VITALS: BP 100/65
[2023-02-18 02:36] VITALS: BP 111/68
[2023-02-18 05:00] LABS: Hematocrit 30.7 % (37.0-53.0); Hemoglobin 9.5 g/dL (13.5-17.5)
[2023-02-18 05:37] LABS: Albumin, Blood 2.2 g/dL (3.4-5.0); Anion Gap 6 mmol/L (6-16); Blood Urea Nitrogen 27 mg/dL (8-24); Bun/Creatinine Ratio 22.9 (12.0-20.0); CO2, Blood 35 mmol/L (21-32); Calcium, Blood 8.9 mg/dL (8.5-10.1); Chloride, Blood 101 mmol/L (98-108); Creatinine, Blood 1.18 mg/dL (0.60-1.20); Glomerular Filtration Rate 65 (60-); Glucose, Blood 116 mg/dL (70-99); Phosphorus, Blood 3.1 mg/dL (2.5-4.9); Potassium, Blood 3.6 mmol/L (3.5-5.5); Sodium, Blood 142 mmol/L (136-145)
[2023-02-18 07:13] VITALS: BP 101/60
--- NOTE | 2023-02-18 15:11 | NUR ---
SHIFT SUMMARY PT RESTING QUIETLY AT START OF SHIFT, NGT TO LIS. BILARY DRAIN TO L SIDE WITH ONLY SM AMT OF OUTPUT IN BAG; 20cc. LARGE ABD, MORBIDLY OBESE. DR MORA IN TO SEE PT AND DISCUSS PLAN OF CARE. PAIN MEDICATIONS ADJUSTED. PT PASSING STOOL NOW; SEVERAL LRG BM'S DURING THE NIGHT AND TODAY. PT IRRITABLE AT START OF SHIFT AND NOT WANTING TO MOVE IN BED OFF BUTTOCKS. MULTIPLE ATTEMPTS MADE TO REPOSITION PT; UNSUCCESSFUL. SON IN RM TO VISIT EARLIER, TRYING TO GET PT TO COMPLY WITH CARE WELL. RESTING QUIETLY AT THIS TIME. CALL LT IN REACH.
[2023-02-18 15:28] VITALS: BP 122/58
--- NOTE | 2023-02-18 17:52 | NUR ---
CARE CONFERENCE: Spoke to both the pt and his son Louis today. The pt continues to state he wishes to continue to attempt to return to his previous state of health. His son Louis is much more realistic at this point. He states he knows the patient is likely to continue declining. Louis is going to come in tomorrow, and we will have a meeting [facility] at approx 10am to discuss code status.
[2023-02-18 19:16] VITALS: BP 110/69
[2023-02-19 03:02] VITALS: BP 110/73
--- NOTE | 2023-02-19 04:42 | NUR ---
SHIFT SUMMARY RUSSELL IS ALERT AND FULLY ORIENTED, HE HAS BEEN COOPERATIVE WITH CARE THIS SHIFT. PT C/O DIFFICULTY PASSING STOOL, BUT HAS HAD SEVERAL SOFT FRANK CONSISTENCY BMS THIS SHIFT. PT ACCIDENTALLY PULLED OUT HIS NGT AT THE START OF THE SHIFT, DR KIM NOTIFIED AND VERBAL ORDER RECIEVED TO DC THE NGT AT 1999. PT HAS NO NAUSEA AT THIS TIME, BUT C/O POORLY MANAGED GOUT PAIN IN HANDS AND FEET.
[2023-02-19 04:43] LABS: Hemoglobin 9.3 g/dL (13.5-17.5)
[2023-02-19 05:09] LABS: Albumin, Blood 2.3 g/dL (3.4-5.0); Anion Gap 9 mmol/L (6-16); Blood Urea Nitrogen 29 mg/dL (8-24); CO2, Blood 33 mmol/L (21-32); Calcium, Blood 8.4 mg/dL (8.5-10.1); Chloride, Blood 98 mmol/L (98-108); Creatinine, Blood 1.26 mg/dL (0.60-1.20); Glomerular Filtration Rate 60 (60-); Glucose, Blood 87 mg/dL (70-99); Magnesium, Blood 1.8 mg/dL (1.6-2.4); Phosphorus, Blood 3.2 mg/dL (2.5-4.9); Potassium, Blood 3.2 mmol/L (3.5-5.5); Sodium, Blood 140 mmol/L (136-145)
[2023-02-19 07:10] VITALS: BP 124/81
[2023-02-19 15:50] VITALS: BP 117/72
--- NOTE | 2023-02-19 16:27 | NUR ---
Met with pt and son at bedside. Pt's son met with Dr. Cabrera this afternoon, and when he returned, he states he has a much better understanding of pt's overall condition and current situation. The pt has been approved to restart a full liquid diet. Both pt and son have now accepted the patient is not a good surgical candidate. Depending on how pt does on his diet, will have a better idea of pt's prognosis overall. Spoke with Dr. Chavarria, updated her on the conversation with pt and son. Will remain available.
--- NOTE | 2023-02-19 16:54 | NUR ---
SHIFT SUMMARY PT RESTING QUIETLY AT START OF SHIFT. WOKE EASILY FOR CARE. MULTIPLE LOOSE BM'S AGAIN THIS SHIFT. PT BELIEVES HE IS "CLEANED OUT NOW". DIET CHANGED TO FULL LIQUID; DIETARY ALSO IN TO SEE PT AND DISCUSS NUTRITION AND FOOD CHOICES. PT AND SON WANTING PT TO GO ON HOSPICE AT START OF SHIFT, BUT LATER DECIDED TO WAIT AND SEE HOW PT TOLERATES DIET. PALLIATIVE CARE IN TO SEE PT AND DISCUSS CARE OPTIONS AND LATER AGAIN WITH PT AND SON AT , TALKING AT GREAT LENGTH. SON ENCOURAGED PT TO BE MORE CO-OP WITH DOCTOR AND NURSING CARE WELL WORKING WITH THERAPY. PT CAN BE IRRITABLE AT TIMES AND REFUSES TO BE REPOSITIONED OFF BUTTOCKS OR REPOSITIONED AT ALL. BUTTOCKS BECOMING RED AND EXCORIATED. CALAZIME OINTMENT APPLIED AFTER EACH STOOL AND ATTENDS CHANGE. BILARY DRAIN CONTINUES WITH MINIMAL TO NO OUTPUT. FLUSHED WITH 5cc NS, BUT NO ADDITIONAL FLUID OUT. DRAIN FLUSHES EASILY AND DOES NOT APPEAR TO CLOGGED. MEDICATED PER EMAR FOR C/O HAND AND FEET GOUT PAIN. DENIED FURTHER NEEDS AT THIS TIME. CALL LT IN REACH.
[2023-02-19 20:35] VITALS: BP 111/73
[2023-02-20 02:51] VITALS: BP 123/70
--- NOTE | 2023-02-20 04:04 | NUR ---
SHIFT SUMMARY RUSSELL WAS ALERT AND FULLY ORIENTED AT THE START OF THE SHIFT AND WAS COOPERATIVE WITH CARE [facility]. HE HAD C/O MILD NAUSEA AT THE START OF THE SHIFT AFTER HE HAD PO NUTRITION, RESOLVED WITHOUT INTERVENTION. PT SLEPT THROUGHOUT THE NIGHT WITH NO ACUTE CHANGES IN CONDITION. HE HAS NOT CALLED FOR PAIN MEDS TONIGHT AFTER 1999 WHICH IS IMPROVED FROM PREVIOUS NIGHT. PT IS RESTING IN BED AT THIS TIME IN A LOWERED POSITION WITH THE CALL LIGHT IN REACH.
[2023-02-20 05:11] LABS: Hematocrit 30.6 % (37.0-53.0); Hemoglobin 9.6 g/dL (13.5-17.5)
[2023-02-20 05:56] LABS: Albumin, Blood 2.2 g/dL (3.4-5.0); Anion Gap 11 mmol/L (6-16); Blood Urea Nitrogen 29 mg/dL (8-24); Bun/Creatinine Ratio 25.2 (12.0-20.0); CO2, Blood 29 mmol/L (21-32); Calcium, Blood 8.6 mg/dL (8.5-10.1); Chloride, Blood 96 mmol/L (98-108); Creatinine, Blood 1.15 mg/dL (0.60-1.20); Glomerular Filtration Rate 67 (60-); Glucose, Blood 104 mg/dL (70-99); Magnesium, Blood 1.8 mg/dL (1.6-2.4); Phosphorus, Blood 3.3 mg/dL (2.5-4.9); Potassium, Blood 3.4 mmol/L (3.5-5.5); Sodium, Blood 136 mmol/L (136-145)
--- NOTE | 2023-02-20 13:04 | NUR ---
Spiritual care visit conducted. Patient is lying in bed and alert. He immediately tells me about his [employer] trevor that has a little Quaker and a little Muslim combined together. He shares about his sons and step sons and how he has good support. He talks about his poor view of the local SNF options but that he is willing to go to another [facility] for a SNF level of care. He talks about his trevor being his source of inspiration and hope and that he is at peace with . I provide therapeutic listening and prayer. PAtient responded well and showed signs of being encouraged in his trevor.
[2023-02-20 15:31] VITALS: BP 114/84
--- NOTE | 2023-02-20 18:40 | NUR ---
SHIFT SUMMARY PT IS ALERT AND ORIENTED. DID NOT TOLORATE BREAKFAST. AROUND 1130 PT REPORTED NOT FEELING HUNGRY AND "FULL" PT BELTCHING THROUGHOUT SHIFT. PT DENIES PAIN. DECLINED SITTING IN CHAIR. PT WILL ATTEMPT TO WORK WITH PT AGAIN TOMORROW.
[2023-02-20 19:30] VITALS: BP 115/68
[2023-02-21 02:39] VITALS: BP 117/77
--- NOTE | 2023-02-21 04:02 | NUR ---
SHIFT SUMMARY RUSSELL IS ALERT AND FULLY ORIENTED, HE WAS COOPERATIVE WITH CARE THIS SHIFT. PT HAS SOME C/O NAUSEA AND GAS. HE DID NOT TOLERATE PO INTAKE WELL ON DAY SHIFT, AND HAD ONE INSTANCE OF VOMITING. PT SAT AT EDGE OF BED AND WAS ABLE TO RELIEVE ABD PRESSURE BY BELCHING. HE CLAIMS THAT HIS GOUT PAIN IS RETURNING SLIGHTLY. MEDICATED PER EMAR. NO ACUTE CHANGES IN CONDITION. HE IS RESTING IN BED IN A LOWERED POSITION WITH THE CALL LIGHT IN REACH.
[2023-02-21 07:29] LABS: Albumin, Blood 2.2 g/dL (3.4-5.0); Anion Gap 7 mmol/L (6-16); Blood Urea Nitrogen 25 mg/dL (8-24); Bun/Creatinine Ratio 25.8 (12.0-20.0); CO2, Blood 33 mmol/L (21-32); Chloride, Blood 97 mmol/L (98-108); Creatinine, Blood 0.97 mg/dL (0.60-1.20); Glomerular Filtration Rate 82 (60-); Glucose, Blood 127 mg/dL (70-99); Magnesium, Blood 1.7 mg/dL (1.6-2.4); Phosphorus, Blood 2.8 mg/dL (2.5-4.9); Potassium, Blood 3.5 mmol/L (3.5-5.5); Sodium, Blood 137 mmol/L (136-145)
[2023-02-21 07:31] LABS: Hematocrit 32.5 % (37.0-53.0); Hemoglobin 10.1 g/dL (13.5-17.5)
[2023-02-21 08:04] VITALS: BP 114/75
--- NOTE | 2023-02-21 13:52 | NUR ---
Spiritual care visit conducted. Patient is tearful about the news that his dog has run away while he has been in the hospital. He explains that his son was taking care of him and the dog (Moses) escaped. His son has been looking and talking to neighbors but had no luck finding him. We talk about methods of locating the dog, ways of dealing with loss and also about the dog's traits and characteristics. I provide prayer for the dog to be found. Patient showed signs of being comforted.
[2023-02-21 14:57] VITALS: BP 109/84
--- NOTE | 2023-02-21 16:48 | NUR ---
SHIFT SUMMARY Pt remains A&Ox3 this shift. Gen pain managed with po meds. Repositioned for comfort. VSS. Decreased appetite. gastric drainage tube CDI with minimal output. 5ml flush given as ordered. Masterson for retention intact. Mepilex to coccyx intact. Pt resting with eyes closed at this time. Will continue to monitor this shift.
[2023-02-21 19:39] VITALS: BP 105/84
[2023-02-22 02:27] VITALS: BP 112/71
[2023-02-22 05:03] LABS: Hematocrit 30.8 % (37.0-53.0); Hemoglobin 9.8 g/dL (13.5-17.5)
[2023-02-22 05:32] LABS: Albumin, Blood 2.2 g/dL (3.4-5.0); Anion Gap 5 mmol/L (6-16); Blood Urea Nitrogen 24 mg/dL (8-24); Bun/Creatinine Ratio 24.6 (12.0-20.0); CO2, Blood 31 mmol/L (21-32); Chloride, Blood 98 mmol/L (98-108); Creatinine, Blood 0.98 mg/dL (0.60-1.20); Glomerular Filtration Rate 81 (60-); Glucose, Blood 172 mg/dL (70-99); Magnesium, Blood 1.6 mg/dL (1.6-2.4); Phosphorus, Blood 2.7 mg/dL (2.5-4.9); Potassium, Blood 3.7 mmol/L (3.5-5.5); Sodium, Blood 134 mmol/L (136-145)
--- NOTE | 2023-02-22 05:57 | NUR ---
SHIFT SUMMARY PRN DILAUDID GIVEN X1 THIS SHIFT WITH POSITIVE EFFECT. BILIARY DRAIN FLUSHED WITH 5CC OF NS, NO OUTPUT NOTED. FIRE SAFETY REVIEWED, NO IGNITION SOURCES IDENTIFIED.
[2023-02-22 08:02] VITALS: BP 117/81
--- NOTE | 2023-02-22 16:18 | NUR ---
SHIFT SUMMARY: Pt remains A&0x3 this shift. VSS. Able to communicate needs. Decreased appetite. Will drink liquid nutrition drink. 1 episode of watery stool and vomiting first of shift. No further complications since. Drain flushed with 5ml saline. No further output noted. Masterson removed per protocol at 0917. Unable to void by 1517, 400ml out per straight cath. Repositioned for comfort. Denies further need for pain med. Call light in reach. Will continue to monitor this shift.
[2023-02-22 16:30] VITALS: BP 92/56
[2023-02-22 21:05] VITALS: BP 98/54
[2023-02-23 02:39] VITALS: BP 98/63
[2023-02-23 05:25] LABS: Hematocrit 29.8 % (37.0-53.0); Hemoglobin 9.4 g/dL (13.5-17.5); Mean Corpuscular HGB Conc 31.5 g/dL (31.5-36.5); Mean Corpuscular Volume 89 fL (80-100); Mean Platelet Volume 10.5 fL (9.1-12.4); Platelet Count 162 K/mm3 (150-400); RDW Coefficient Variation 15.7 % (11.7-14.2); RDW Standard Deviation 51.2 fL (35.1-46.3); Red Blood Cell Count 3.36 M/mm3 (4.30-5.90); White Blood Cell Count 5.32 K/mm3 (4.00-11.30)
[2023-02-23 06:01] LABS: Albumin, Blood 2.2 g/dL (3.4-5.0); Anion Gap 4 mmol/L (6-16); Blood Urea Nitrogen 26 mg/dL (8-24); Bun/Creatinine Ratio 27.7 (12.0-20.0); CO2, Blood 32 mmol/L (21-32); Calcium, Blood 8.5 mg/dL (8.5-10.1); Chloride, Blood 96 mmol/L (98-108); Creatinine, Blood 0.94 mg/dL (0.60-1.20); Glomerular Filtration Rate 85 (60-); Glucose, Blood 181 mg/dL (70-99); Magnesium, Blood 1.5 mg/dL (1.6-2.4); Phosphorus, Blood 2.7 mg/dL (2.5-4.9); Potassium, Blood 3.8 mmol/L (3.5-5.5); Sodium, Blood 132 mmol/L (136-145)
--- NOTE | 2023-02-23 06:42 | NUR ---
SHIFT SUMMARY REPORTED NO PAIN THIS SHIFT. ST CATH X 1 FOR 600CC URINE. THIS IS THE SECOND TIME PT ST CATH SINCE BACH REMOVAL. PT REQUESTING MEDICATION FOR HIS PROSTATE, WILL RELAY TO DAY SHIFT NURSE. FIRE SAFETY REVIEWED, NO IGNITION SOURCES
[2023-02-23 08:24] VITALS: BP 111/67
--- NOTE | 2023-02-23 15:40 | NUR ---
SHIFT SUMMARY PT RESTING QUIETLY LF, LEANING TO R SIDE. PT STILL REFUSING TO BE POSITIONED OFF BUTTOCKS. REMAINS WEAK AND DECONDITIONED; STILL REFUSING TO WORK WITH THERAPY. PT BACK ON CL DIET AND ONLY TOLERATING BOOST. PT REFUSING JUICE, BROTH, JELLO, AND PROTEIN. SLEEPING MOST OF THE DAY. SON DID COME IN TO SEE PT AGAIN TODAY. PT STILL UNABLE TO VOID ON HIS OWN; BLADDER SCAN DONE THIS AFTERNOON SHOWING 398cc. DR MAR IN TO SEE PT TODAY AND HOPING TO ALSO TALK WITH SON TOMORROW. NO OUTPUT FROM BILARY DRAIN. DENIES FURTHER NEEDS AT THIS TIME. CALL LT IN REACH.
[2023-02-23 16:16] VITALS: BP 96/64
[2023-02-23 19:49] VITALS: BP 107/83
[2023-02-24 03:13] VITALS: BP 99/61
[2023-02-24 04:43] LABS: Hemoglobin 9.7 g/dL (13.5-17.5)
[2023-02-24 05:03] LABS: Albumin, Blood 2.3 g/dL (3.4-5.0); Anion Gap 5 mmol/L (6-16); Blood Urea Nitrogen 25 mg/dL (8-24); Bun/Creatinine Ratio 23.8 (12.0-20.0); CO2, Blood 33 mmol/L (21-32); Calcium, Blood 8.8 mg/dL (8.5-10.1); Chloride, Blood 94 mmol/L (98-108); Creatinine, Blood 1.05 mg/dL (0.60-1.20); Glomerular Filtration Rate 74 (60-); Glucose, Blood 156 mg/dL (70-99); Magnesium, Blood 1.8 mg/dL (1.6-2.4); Potassium, Blood 3.8 mmol/L (3.5-5.5); Sodium, Blood 132 mmol/L (136-145)
--- NOTE | 2023-02-24 06:01 | NUR ---
SHIFT SUMMARY PT C/O INABILITY TO VOID, AND REPORTED HE HAD NOT BEEN ST CATHED DURING DAY SHIFT AND WAS NOT ABLE TO VOID ON OWN AT ALL. DISPLAYER MERCHANDISE STATED PER REPORT HE WAS BLADDER SCANNED EARLIER IN THE DAY AND HAD 360CC IN BLADDER. BACH PLACED IN PATIENT DUE TO IT BEING HIS 3RD ST CATH FROM INABILITY TO VOID. 14F BACH PLACED WITH 800CC OF YELLOW URINE IN IMMEDIATE OUTPUT. GOUT PAIN REQUIRING PRN DILAUDID X2 THIS SHIFT. PT WAS NOT ABLE TO SLEEP THIS SHIFT. FIRE SAFETY REVIEIWED, NO IGNITION SOURCES
[2023-02-24 07:19] VITALS: BP 97/63
--- NOTE | 2023-02-24 16:21 | NUR ---
SHIFT SUMMARY PT RESTING QUIETLY AWAKE AT START OF SHIFT. PT'S SON IN EARLIER THIS AM. DR MAR NOTIFIED TO COME TO PT RM AND SPEAK WITH PT AND SON TO DISCUSS PLAN OF CARE. PT HAS BEEN UNWILLING TO WORK WITH THERAPY OR ALLOW CARE NEEDED TO REPOSITION OFF BUTTOCKS FOR WOUND PREVENTION. PT AGREEABLE, AFTER DR MAR TALKED WITH HIM, TO ALLOW CONTENT COORDINATOR TO PLACE PILLOW TO R SIDE ONCE. PT LATER INCONTINENT OF BOWELS. PT CLEANED AND CHANGED. PT THEN STARTED VOMITING; APPROX 300cc OUT. PT CURRENTLY ON CL DIET, PER PT REQUEST, BUT NOT TOLERATING WELL. PT DECLINED DRINKING ANYTHING FOR BREAKFAST, WAITING FOR SON TO BRING IN SOME KIND OF PROTEIN SHAKE. PT DECLINED ANYTHING FOR LUNCH WELL AND THEN LATER VOIMITING. DECLINED ZOFRAN, DENIED NAUSEA. NO OUTPUT FROM BILARY DRAIN EXCEPT FLUID FROM 5cc FLUSH, PER ORDERS. MEDICATED PER EMAR FOR C/O GOUT PAIN. RESTING QUIETLY AT THIS TIME. CALL LT IN REACH.
[2023-02-24 20:47] VITALS: BP 83/73
[2023-02-24 23:30] VITALS: BP 105/74
[2023-02-25 02:25] VITALS: BP 103/68
--- NOTE | 2023-02-25 06:42 | NUR ---
SHIFT SUMMARY PT C/O PAIN ONCE THIS SHIFT AND PO DILAUDID GIVEN PER REQUEST. BACH DRAINING TO GRAVITY, NO C/O NAUSEA OR VOMITING. BP WAS LOW IN THE BEGINNING OF SHIFT, PRN MIDODRINE GIVEN WITH POSITIVE EFFECT. BILIARY DRAIN FLUSHED WITH 5CC OF NS, NO OUTPUT NOTED.
[2023-02-25 07:08] VITALS: BP 94/69
[2023-02-25 15:06] VITALS: BP 101/72
[2023-02-25] MEDS ORDERED: ACET325 PO (18:43)
[2023-02-25] MEDS ORDERED: BUME1 PO (18:44)
[2023-02-25] MEDS ORDERED: HYDMOR2 PO (18:54)
[2023-02-25 19:40] VITALS: BP 92/54
[2023-02-26 03:52] VITALS: BP 101/70
[2023-02-26 05:14] LABS: BASOPHILS ABSOLUTE AUTO 0.03 K/mm3 (0.00-0.23); BASOPHILS PERCENT AUTO 1 % (0-2); EOSINOPHILS ABSOLUTE AUTO 0.06 K/mm3 (0.00-0.68); EOSINOPHILS PERCENT AUTO 1 % (0-6); Hematocrit 29.6 % (37.0-53.0); Hemoglobin 9.5 g/dL (13.5-17.5); IMMATURE GRAN ABSOLUTE AUTO 0.05 K/mm3 (0.00-0.10); IMMATURE GRAN PERCENT AUTO 1 % (0-1); LYMPHOCYTES ABSOLUTE AUTO 1.22 K/mm3 (0.84-5.20); LYMPHOCYTES PERCENT AUTO 21 % (21-46); MONOCYTES ABSOLUTE AUTO 0.49 K/mm3 (0.16-1.47); MONOCYTES PERCENT AUTO 8 % (4-13); Mean Corpuscular HGB 28.2 pg (26.0-34.0); Mean Corpuscular HGB Conc 32.1 g/dL (31.5-36.5); Mean Corpuscular Volume 88 fL (80-100); Mean Platelet Volume 11.4 fL (9.1-12.4); NEUTROPHILS ABSOLUTE AUTO 4.09 K/mm3 (1.96-9.15); NEUTROPHILS PERCENT AUTO 69 % (41-73); Platelet Count 173 K/mm3 (150-400); RDW Coefficient Variation 15.6 % (11.7-14.2); RDW Standard Deviation 49.9 fL (35.1-46.3); Red Blood Cell Count 3.37 M/mm3 (4.30-5.90); White Blood Cell Count 5.94 K/mm3 (4.00-11.30)
[2023-02-26 05:49] LABS: Albumin, Blood 2.2 g/dL (3.4-5.0); Albumin/Globulin Ratio 0.6 (0.8-1.8); Bilirubin, Total 0.5 mg/dL (0.1-1.0); Bun/Creatinine Ratio 26.2 (12.0-20.0); Calcium, Blood 8.2 mg/dL (8.5-10.1); Creatinine, Blood 1.03 mg/dL (0.60-1.20); Globulin, Blood 3.8 g/dL (2.2-4.0); Magnesium, Blood 1.7 mg/dL (1.6-2.4); Phosphorus, Blood 3.4 mg/dL (2.5-4.9)
--- NOTE | 2023-02-26 06:17 | NUR ---
SHIFT SUMMARY NO PAIN REPORTED THIS SHIFT. DID HAVE NAUSEA AND EMESIS, PRN ZOFRAN GIVEN WITH GOOD EFFECT. PT SLEPT A GOOD PORTION OF THE NIGHT. BACH DRAINING TO GRAVITY, BILIARY DRAIN WITH NO NOTABLE DRAINAGE.
[2023-02-26 07:03] VITALS: BP 98/72
[2023-02-26] MEDS ORDERED: METO10 PO (07:17)
[2023-02-26] MEDS ORDERED: MIDO5 PO (07:19)
[2023-02-26] MEDS ORDERED: PANTOPRAZOLE SO40 M2 PO (07:30)
[2023-02-26] MEDS ORDERED: TAMS.4ER PO (07:48)
== END 2023-02-26 14:15 | disposition home or self-care (01) | DRG 73 ==
LOC: ER 10:08 → PCU 10:09 → MEDS 02-06 15:18 → PCU 02-06 15:19 → MEDS 02-08 16:57 → ENPENDDIS 02-25 14:22 → MEDS 02-26 14:15
PROVIDERS: Emergency Medicine; Internal Medicine; Internal Medicine Nephrology; Student in an Organized Health Care Education/Training Program; ADMIT Internal Medicine
PROC: 0D9670Z Drainage of Stomach with Drainage Device, Via Natural or Artificial Opening (ICD-10-PCS; principal; 2023-02-05)
PROC: 5A0945A Assistance with Respiratory Ventilation, 24-96 Consecutive Hours, High Flow/Velocity Cannula (ICD-10-PCS; 2023-02-11)
PROC: 0DJ08ZZ Inspection of Upper Intestinal Tract, Via Natural or Artificial Opening Endoscopic (ICD-10-PCS; 2023-02-12)
PROC: 0W9B30Z Drainage of Left Pleural Cavity with Drainage Device, Percutaneous Approach (ICD-10-PCS; 2023-02-15)
DX: E11.43 Type 2 diabetes mellitus with diabetic autonomic (poly)neuropathy (principal); K22.6 Gastro-esophageal laceration-hemorrhage syndrome; E87.1 Hypo-osmolality and hyponatremia; E87.3 Alkalosis; I13.0 Hypertensive heart and chronic kidney disease with heart failure and stage 1 through stage 4 chronic kidney disease, or unspecified chronic kidney disease; K81.0 Acute cholecystitis; J98.11 Atelectasis; J96.11 Chronic respiratory failure with hypoxia; N17.9 Acute kidney failure, unspecified; J90 Pleural effusion, not elsewhere classified; I50.32 Chronic diastolic (congestive) heart failure; K92.0 Hematemesis; K31.1 Adult hypertrophic pyloric stenosis; K31.84 Gastroparesis; I95.9 Hypotension, unspecified; K31.89 Other diseases of stomach and duodenum; K82.A1 Gangrene of gallbladder in cholecystitis; E11.22 Type 2 diabetes mellitus with diabetic chronic kidney disease; N18.30 Chronic kidney disease, stage 3 unspecified; E78.00 Pure hypercholesterolemia, unspecified; E11.40 Type 2 diabetes mellitus with diabetic neuropathy, unspecified; M62.3 Immobility syndrome (paraplegic); E03.9 Hypothyroidism, unspecified; E87.6 Hypokalemia; D63.1 Anemia in chronic kidney disease; E83.39 Other disorders of phosphorus metabolism; E88.09 Other disorders of plasma-protein metabolism, not elsewhere classified; E83.42 Hypomagnesemia; K59.03 Drug induced constipation; T40.605A Adverse effect of unspecified narcotics, initial encounter; J44.9 Chronic obstructive pulmonary disease, unspecified; N40.0 Benign prostatic hyperplasia without lower urinary tract symptoms; M10.9 Gout, unspecified; G89.29 Other chronic pain; E66.9 Obesity, unspecified; E86.9 Volume depletion, unspecified; I48.0 Paroxysmal atrial fibrillation; G47.33 Obstructive sleep apnea (adult) (pediatric); Z91.013 Allergy to seafood; Z91.018 Allergy to other foods; Z88.8 Allergy status to other drugs, medicaments and biological substances; Z79.01 Long term (current) use of anticoagulants; Z79.890 Hormone replacement therapy; Z79.4 Long term (current) use of insulin; Z79.899 Other long term (current) drug therapy; Z79.2 Long term (current) use of antibiotics; Z91.148 Patient's other noncompliance with medication regimen for other reason; Z99.81 Dependence on supplemental oxygen; Z98.890 Other specified postprocedural states; Z86.79 Personal history of other diseases of the circulatory system; Z93.59 Other cystostomy status; Z89.421 Acquired absence of other right toe(s); Z90.89 Acquired absence of other organs; Z68.29 Body mass index [BMI] 29.0-29.9, adult
CPT/HCPCS: 32554; 32555; 36415; 51701; 71045; 71250; 74018; 74177; 74240; 76604; 80048; 80053; 80069; 81001; 82042; 82248; 82271; 82570; 82945; 82947; 83615; 83690; 83735; 83880; 84100; 84153; 84154; 84157; 84300; 84443; 84478; 84550; 85014; 85018; 85025; 85027; 85379; 85610; 87070; 87075; 87077; 87186; 87205; 88108; 88305; 89051; 93005; 93010; 94640; 94664; 94760; 94762; 96374-59; 96375; 96375-59; 96376; 97110; 97162; 97166; 97530; 99285-25; A9270; C1751; C9113; G0378; J0780; J0881; J2001; J2371; J2405; J2543; J2704; J2765; J3010; J3475; J3480; J7030; J7042; J7050; J7060; J7120; P9047; Q9967

== ENCOUNTER 2023-05-14 16:15 | Observation (INO) | payer OTHER ==
[~2023-05-14] VITALS: Ht 185.4 cm; Wt 101.2 kg
[~2023-05-14 16:15] MED LIST changes: +ACET325 PO; +B-COMPLEX WITH1 EAC2 PO; +HYDMOR2 PO; +METO10 PO; +PANTOPRAZOLE SO40 M2 PO
[2023-05-14 16:48] LABS: BASOPHILS ABSOLUTE AUTO 0.05 K/mm3 (0.00-0.23); BASOPHILS PERCENT AUTO 1 % (0-2); EOSINOPHILS ABSOLUTE AUTO 0.07 K/mm3 (0.00-0.68); EOSINOPHILS PERCENT AUTO 1 % (0-6); Hemoglobin 11.4 g/dL (13.5-17.5); IMMATURE GRAN ABSOLUTE AUTO 0.02 K/mm3 (0.00-0.10); IMMATURE GRAN PERCENT AUTO 0 % (0-1); LYMPHOCYTES ABSOLUTE AUTO 2.63 K/mm3 (0.84-5.20); LYMPHOCYTES PERCENT AUTO 36 % (21-46); MONOCYTES PERCENT AUTO 4 % (4-13); Mean Corpuscular HGB 25.1 pg (26.0-34.0); Mean Corpuscular HGB Conc 30.8 g/dL (31.5-36.5); Mean Corpuscular Volume 81 fL (80-100); Mean Platelet Volume 10.4 fL (9.1-12.4); NEUTROPHILS PERCENT AUTO 58 % (41-73); Platelet Count 231 K/mm3 (150-400); RDW Coefficient Variation 18.2 % (11.7-14.2); RDW Standard Deviation 52.6 fL (35.1-46.3); Red Blood Cell Count 4.55 M/mm3 (4.30-5.90); White Blood Cell Count 7.37 K/mm3 (4.00-11.30)
[2023-05-14 17:18] LABS: Albumin, Blood 3.1 g/dL (3.4-5.0); Albumin/Globulin Ratio 0.6 (0.8-1.8); Bilirubin, Total 0.8 mg/dL (0.1-1.0); Bun/Creatinine Ratio 43.3 (12.0-20.0); Calcium, Blood 9.6 mg/dL (8.5-10.1); Creatinine, Blood 1.57 mg/dL (0.60-1.20); Globulin, Blood 5.5 g/dL (2.2-4.0); Total Protein, Blood 8.6 g/dL (6.4-8.2)
[2023-05-14] MEDS ORDERED: SPIRONOLACTONE25 MG PO (22:50)
[2023-05-14] MEDS ORDERED: PREG75 PO (22:51)
[2023-05-14] MEDS ORDERED: ELIQUIS5 M3 PO (22:51)
[2023-05-15 02:00] VITALS: BP 103/66
[2023-05-15 03:51] LABS: BASOPHILS ABSOLUTE AUTO 0.05 K/mm3 (0.00-0.23); BASOPHILS PERCENT AUTO 1 % (0-2); EOSINOPHILS ABSOLUTE AUTO 0.14 K/mm3 (0.00-0.68); EOSINOPHILS PERCENT AUTO 2 % (0-6); IMMATURE GRAN ABSOLUTE AUTO 0.04 K/mm3 (0.00-0.10); IMMATURE GRAN PERCENT AUTO 1 % (0-1); LYMPHOCYTES ABSOLUTE AUTO 2.14 K/mm3 (0.84-5.20); LYMPHOCYTES PERCENT AUTO 33 % (21-46); MONOCYTES ABSOLUTE AUTO 0.31 K/mm3 (0.16-1.47); MONOCYTES PERCENT AUTO 5 % (4-13); Mean Corpuscular HGB 24.9 pg (26.0-34.0); Mean Corpuscular HGB Conc 30.3 g/dL (31.5-36.5); Mean Corpuscular Volume 82 fL (80-100); Mean Platelet Volume 10.9 fL (9.1-12.4); NEUTROPHILS ABSOLUTE AUTO 3.75 K/mm3 (1.96-9.15); NEUTROPHILS PERCENT AUTO 58 % (41-73); Platelet Count 208 K/mm3 (150-400); RDW Coefficient Variation 18.2 % (11.7-14.2); RDW Standard Deviation 54.2 fL (35.1-46.3); Red Blood Cell Count 4.01 M/mm3 (4.30-5.90); White Blood Cell Count 6.43 K/mm3 (4.00-11.30)
[2023-05-15 04:15] LABS: Albumin, Blood 2.7 g/dL (3.4-5.0); Albumin/Globulin Ratio 0.5 (0.8-1.8); Bilirubin, Total 0.8 mg/dL (0.1-1.0); Calcium, Blood 9.4 mg/dL (8.5-10.1); Creatinine, Blood 1.57 mg/dL (0.60-1.20); Globulin, Blood 5.1 g/dL (2.2-4.0); Potassium, Blood 3.7 mmol/L (3.5-5.5); Total Protein, Blood 7.8 g/dL (6.4-8.2)
[2023-05-15 08:00] VITALS: BP 103/71
[2023-05-15 08:11] VITALS: BP 84/74; BP 90/65
[2023-05-15 08:13] VITALS: BP 90/65
--- NOTE | 2023-05-15 12:15 | NUR ---
PT SON REQUESTED A CALL FROM THIS RN. THIS RN CALLED SON FOR UPDATE OF SURGERY CONSULT AND THAT WE ARE WAITING FOR THE SURGEON TO SEE PT. PT SON EXPRESSED THAT PT AND THE SON BOTH WOULD LIKE THE GALLBLADDER REMOVED STATING, "HE CANNOT GET ANY BETTER UNTIL THAT GALLBLADDER IS REMOVED. MY DAD AND I HAVE DISCUSSED THIS IN DEPTH." PT ALSO EXPRESSED WANTING HIS GALLBLADDER REMOVED TO THIS RN DURING MORNING ASSESMENT AND VITALS. THS RN INFORMED PT AND PT SON THAT THIS INFORMATION WILL BE FORWARDED TO SURGEON WHEN THE SURGEON COMES TO SEE PT.
[2023-05-15 16:47] VITALS: BP 102/65
--- NOTE | 2023-05-15 18:27 | NUR ---
TRANSFER NOTE/ SHIFT SUMMARY PT A/OX4 AND COOPERATIVE OF CARE. PT ABLE TO EXPRESS NEEDS AND CALLS APPROPIATE. PT REMAINED IN AFIB AT CONTROLED RATES OF 80-110'S, PT ASYMPTOMATIC. BP'S SOFT DURING SHIFT. PT REMAINED ON 2L NC WHICH PT REPORTED IS HIS BASELINE, SATS STABLE IN THE 90'S, NO REPORT OF SOB/DYSPNEA. NO REPORT OF CHEST PAIN/PRESSURE THROUGHOUT SHIFT. PT SEEN BY SURGEON TODAY, DR COUCH TO LOOK AT PT CASE TOMORROW PER DR BRADSHAW, NO SURGERY AT THIS TIME. CHRONIC BACH IN PLACE DRAINING TO GRAVITY, YELLOW URINE. ROBLES DRAIN SITE WITH BANDAGE, SITE C/D/I. NO REPORT OF PAIN AT SITE UNLESS PALPATED. NS RUNNING AT 75ML/HR PER ORDER. PT TRANSFERED TO MED FLOOR AT 1815 VIA HOSPITAL BED. REPORT GIVEN TO SIERRA LORD AT 1745. PT BELONGINGS IN PT PERSONAL BACKPACK AND WHITE BAGS AND TRANSFERED WITH PT. MEDS IN GREEN MED BAG AND TRANSFERED WITH PT. PT CHART TRANSFERED WITH PT. PT ON RA DURING TRANSFER, 2L NC APPLIED ONCE TO NEW ROOM.
[2023-05-15 19:35] VITALS: BP 98/63
[2023-05-16 03:37] VITALS: BP 98/64
--- NOTE | 2023-05-16 04:29 | NUR ---
1900: ASSUMED CARE OF PT, REPORT RECEIVED FROM DAY SHIFT RN. PT IS FOUND LAYING IN BED WITH HEAD OF BED ELEVATED. PIV WITH NS RUNNING ORDERED. CHRONIC BACH CATHETER DRAINING CLEAR YELLOW URINE. PT REPORTS HIS ROBLES DRAIN WAS ACCIDENTLY PULLED OUT. PLAN TO HAVE THIS EVALUATED TOMORROW. INCONTINENT OF BOWEL DURING THIS SHIFT. CARES PROVIDED. PT IS A/O, TOLERATED MEDICATIONS WITH WATER, VSS. SAFETY MEASURES TAKEN, BED IN THE LOWEST POSITION WITH ALARM ON, CALL LIGHT WITHIN REACH.
[2023-05-16 06:34] LABS: Bun/Creatinine Ratio 36.8 (12.0-20.0); Calcium, Blood 9.2 mg/dL (8.5-10.1); Creatinine, Blood 2.01 mg/dL (0.60-1.20); Potassium, Blood 3.7 mmol/L (3.5-5.5)
[2023-05-16 07:18] VITALS: BP 97/66
[2023-05-16] MEDS ORDERED: MIRALAX17 GM PO (12:06)
== END 2023-05-16 14:03 | disposition home health service (06) ==
LOC: ER 16:15 → MEDS 16:16 → PCU 16:16 → MEDS 05-15 18:15 → ENPENDDIS 05-16 11:38 → MEDS 05-16 14:03
PROVIDERS: Family Medicine; Internal Medicine; Physician Assistant; ADMIT Student in an Organized Health Care Education/Training Program
DX: T85.528A Displacement of other gastrointestinal prosthetic devices, implants and grafts, initial encounter (principal); Y73.8 Miscellaneous gastroenterology and urology devices associated with adverse incidents, not elsewhere classified; N17.9 Acute kidney failure, unspecified; E87.6 Hypokalemia; I13.0 Hypertensive heart and chronic kidney disease with heart failure and stage 1 through stage 4 chronic kidney disease, or unspecified chronic kidney disease; E11.22 Type 2 diabetes mellitus with diabetic chronic kidney disease; N18.30 Chronic kidney disease, stage 3 unspecified; I50.32 Chronic diastolic (congestive) heart failure; J44.9 Chronic obstructive pulmonary disease, unspecified; G47.33 Obstructive sleep apnea (adult) (pediatric); I48.0 Paroxysmal atrial fibrillation; E11.43 Type 2 diabetes mellitus with diabetic autonomic (poly)neuropathy; K31.84 Gastroparesis; E03.9 Hypothyroidism, unspecified; M10.9 Gout, unspecified; G89.29 Other chronic pain; Z74.01 Bed confinement status; Z79.01 Long term (current) use of anticoagulants; Z79.4 Long term (current) use of insulin; Z79.890 Hormone replacement therapy; Z79.899 Other long term (current) drug therapy
CPT/HCPCS: 36415; 51702; 74177; 80048; 80053; 82947; 83690; 85025; 94762; 96361; 96374; 97162; 97165; 97530; 99284-25; A9270; G0378; J2405; J7030; Q9967

== ENCOUNTER 2023-05-26 04:21 | Emergency (ER) | payer OTHER ==
[~2023-05-26] VITALS: Ht 185.4 cm; Wt 102.1 kg
[~2023-05-26 04:21] MED LIST changes: +ELIQUIS5 M3 PO; +PREG75 PO; +SPIRONOLACTONE25 MG PO
[2023-05-26 04:49] LABS: BASOPHILS ABSOLUTE AUTO 0.04 K/mm3 (0.00-0.23); BASOPHILS PERCENT AUTO 1 % (0-2); EOSINOPHILS ABSOLUTE AUTO 0.18 K/mm3 (0.00-0.68); EOSINOPHILS PERCENT AUTO 3 % (0-6); Hematocrit 29.5 % (37.0-53.0); Hemoglobin 9.1 g/dL (13.5-17.5); IMMATURE GRAN ABSOLUTE AUTO 0.01 K/mm3 (0.00-0.10); IMMATURE GRAN PERCENT AUTO 0 % (0-1); LYMPHOCYTES ABSOLUTE AUTO 2.12 K/mm3 (0.84-5.20); LYMPHOCYTES PERCENT AUTO 33 % (21-46); MONOCYTES ABSOLUTE AUTO 0.33 K/mm3 (0.16-1.47); MONOCYTES PERCENT AUTO 5 % (4-13); Mean Corpuscular HGB 25.3 pg (26.0-34.0); Mean Corpuscular HGB Conc 30.8 g/dL (31.5-36.5); Mean Corpuscular Volume 82 fL (80-100); Mean Platelet Volume 10.9 fL (9.1-12.4); NEUTROPHILS PERCENT AUTO 58 % (41-73); Platelet Count 227 K/mm3 (150-400); RDW Coefficient Variation 19.6 % (11.7-14.2); RDW Standard Deviation 56.4 fL (35.1-46.3); White Blood Cell Count 6.38 K/mm3 (4.00-11.30)
[2023-05-26 04:56] LABS: Base Excess Venous 1.7 mmol/L; Bicarbonate Venous 25.7 mmol/L (24.0-30.0); PCO2 Venous 43.6 mmHg (38-42); pH Blood Venous 7.39 (7.34-7.37)
[2023-05-26 05:04] LABS: International Normalized Ratio 1.15
[2023-05-26 05:11] LABS: Albumin, Blood 2.7 g/dL (3.4-5.0); Albumin/Globulin Ratio 0.6 (0.8-1.8); Bilirubin, Total 0.5 mg/dL (0.1-1.0); Bun/Creatinine Ratio 51.8 (12.0-20.0); Calcium, Blood 8.4 mg/dL (8.5-10.1); Creatinine, Blood 1.39 mg/dL (0.60-1.20); Globulin, Blood 4.7 g/dL (2.2-4.0); Potassium, Blood 4.3 mmol/L (3.5-5.5); Total Protein, Blood 7.4 g/dL (6.4-8.2)
[2023-05-26 10:08] LABS: Influenza A, PCR NEGATIVE (NEGATIVE); Influenza B, PCR NEGATIVE (NEGATIVE); Resp Syncytial Virus, PCR NEGATIVE (NEGATIVE); SARS-Cov-2 (COVID-19) PCR, MMC NEGATIVE (NEGATIVE)
[2023-05-26 11:00] VITALS: BP 101/71
== END 2023-05-26 13:42 | disposition home or self-care (01) ==
LOC: ER 04:21
PROVIDERS: Emergency Medicine; Student in an Organized Health Care Education/Training Program
DX: J90 Pleural effusion, not elsewhere classified (principal); R53.81 Other malaise; Z11.52 Encounter for screening for COVID-19; Z79.4 Long term (current) use of insulin; Z79.890 Hormone replacement therapy; Z79.01 Long term (current) use of anticoagulants; Z79.899 Other long term (current) drug therapy
CPT/HCPCS: 0241U; 71046; 80053; 82803; 83605; 83690; 83880; 84484; 85025; 85610; 93005; 93010; 99285-25

== ENCOUNTER → 2023-07-10 | Outpatient (CLI) | payer OTHER ==
[2023-07-10 17:45] LABS: Source, Urine Straight Cath
[2023-07-10 18:33] LABS: Appearance, Urine Hazy (Clear); Bilirubin, Urine Neg (Neg); Blood, Urine 4+ (Neg); Glucose Qualitative, Urine Neg (Neg); Ketones, Urine Neg (Neg); Leukocyte Esterase, Urine 2+ (Neg); Nitrite, Urine Neg (Neg); Protein, Urine 1+ (Neg); Specific Gravity, Urine 1.015 (1.003-1.022); Urobilinogen, Urine NORM (Normal)
[2023-07-10 18:59] LABS: Color, Urine Pale Yellow (P-Yellow); White Blood Cells, Urine 25-50 /hpf (0-5)
[2023-07-10 19:00] LABS: Bacteria Mod /hpf; Squamous Epithelial Cells Not Seen /hpf (Few)
== END ==
LOC: LAB SHORT 17:43 → LAB 17:43
PROVIDERS: Family Medicine
DX: N39.0 Urinary tract infection, site not specified (principal)
CPT/HCPCS: 81001; 87077; 87086; 87186